=== PATIENT | female | born 1950 | race Caucasian/White ===

== ENCOUNTER 2024-04-19 06:57 | Day surgery (SDC) | payer OTHER, SELFPAY ==
[2024-04-05 13:02] VITALS: BMI 36.3
[2024-04-05 13:43] LABS: % Basophils 0.9 % (0-2); % Eosinophils 1.3 % (0-6); % Immature Granulocytes 0.1 % (0-0.5); % Lymphocytes 25.9 % (20.5-51.1); % Monocytes 7.3 % (1.7-9.3); % Neutrophils 64.5 % (42.2-75.2); Absolute Basophils 0.1 10^3/uL (0-0.2); Absolute Eosinophils 0.1 10^3/uL (0-0.7); Absolute Lymphocytes 1.8 10^3/uL (1.2-3.4); Absolute Monocytes 0.5 10^3/uL (0.1-0.6); Absolute Neutrophils 4.5 10^3/uL (1.4-6.5); Hematocrit 42.7 % (37.0-47.0); Hemoglobin 14.4 g/dL (12.0-16.0); Mean Corp Hgb Conc. 33.7 g/dL (33.0-37.0); Mean Corpuscular Hgb 29.4 pg (27.0-31.0); Mean Corpuscular Volume 87.1 fL (81.0-99.0); Mean Platelet Volume 10.1 fL (7.4-10.4); Nucleated Red Blood Cells % 0 %; Platelet Count 202 10^3/uL (130-400)
[2024-04-05 13:55] LABS: INR 1.22; PT 15.3 Sec (11.4-14.6)
[2024-04-05 14:05] LABS: ALT (SGPT) 21 U/L (0-35); AST (SGOT) 27 U/L (14-36); Albumin 4.4 g/dl (3.5-5.0); Alkaline Phosphatase 96 U/L (38-126); Blood Urea Nitrogen 14 mg/dl (7-17); Calcium 10.3 mg/dl (8.4-10.2); Carbon Dioxide 26 mmol/L (22-30); Estimated Creatinine Clearance 89 ml/min; Glucose 103 mg/dl (70-99); Total Bilirubin 0.7 mg/dl (0.2-1.3); Total Protein 7.3 g/dl (6.3-8.2); eGFR > 60.00
[2024-04-05 14:13] LABS: Chloride 109 mmol/L (98-107); Sodium 144 mmol/L (135-145)
[2024-04-05 14:55] LABS: Potassium 4.1 mmol/L (3.5-5.1)
[2024-04-19] VITALS (14 sets, daily range): BP systolic 122–171; BP diastolic 56–83; BMI 36.3
[2024-04-19 10:36] LABS: ACT-LR - POC 343 Seconds (116-155)
[2024-04-19 10:55] LABS: ACT-LR - POC 318 Seconds (116-155)
[2024-04-19 11:18] LABS: ACT-LR - POC 314 Seconds (116-155)
--- NOTE | 2024-04-19 13:47 | PTCARENOTE ---
received pt from recovery area. AOx3, no complaints of pain or discomfort. Educated on activity restrictions and expected OOB time, Pt verbalized understanding. B/L groins CDI. Call siddiqui within reach.
--- NOTE | 2024-04-19 15:13 | ITS.CL.ABL ---
Medical Office Asst - Ablation
Ablation
Procedure Report:
ELECTROPHYSIOLOGIC STUDY AND POSSIBLE ABLATION
DATE: April 19, 2024
Primary Care: Dr. Sergio Gonzales
REFERRING: Dr Quique Joseph
INDICATION:
Symptomatic Atrial Fibrillation.
Paroxysmal
HISTORY: See H and P.
Symptomatic AF, poorly controlled with attempted medical therapy
Jaimie has symptomatic recurrent atrial fibrillation. She has been treated with antiarrhythmic drug therapy which has included sotalol, However up-titation of dosing has been limited by bradycardia. She had pulmonary venous isolation September 2015,
repeat PVI 01/2022 and prior to that Cryo PVI in 2014
She has experienced multiple recurrences of symptomatic atrial fibrillation and required cardioversion as recently as November 18, 2023. Immediately after cardioversion she felt well and continued to feel well.
Most recent echocardiogram is from December 09, 2023 finding normal left ventricular size and function with ejection fraction of 54%. She was found to be in atrial fibrillation again during this echocardiogram. Echocardiogram notes that there is
normal left atrial and right atrial sizes and no significant valvular disease.
HAS-BLED: 1
Age
CHADSVASc: 3
HTN
age
F Gender
PRESENTING RHYTHM: SR
HISTORY: See H and P.
Symptomatic AF, poorly controlled with attempted medical therapy.
ANTIARRHYTHMIC DRUG: Sotalol, 80 mg BID
ANTICOAGULATION: Apixaban
'TIME-OUT': called and confirmed.
SEDATION/ANESTHESIA: provided via the anesthesia department using general anesthesia.
PROCEDURE:
Ultrasound Guidance performed by or was utilized for femoral venous Vascular Access b/l.
A decapolar CS catheter was placed within the CS for mapping and pacing.
The intracardiac ultrasound catheter was positioned in the RA for continuous intracardiac ultrasound imaging.
Heparin bolus and infusion to target ACT at 300 -350 seconds was administered. Transseptal puncture was performed. This entailed advancing a sheath with dilator into the superior vena cava and withdrawing both (monitoring intracardiac ultrasound,
fluoroscopy and tip pressure) with the tip oriented toward the atrial septum. The fossa ovalis was engaged (indicated by sudden displacement of the sheath tip as well as tenting of the fossa seen on intracardiac ultrasound).
Ac[employer]Cross transseptal system was used. Left atrial catheter position was confirmed by echocardiographic imaging, pressure monitoring (LA mean pressure 8 mm Hg) and fluoroscopy. The sheath was advanced over the dilator and positioned in the left
atrium.
The multipolar mapping catheter was initially positioned through the transseptal sheath for high density mapping.
Geometry and voltage mapping was performed using the [employer] multipolar grid catheter. Navex was utilized for three-dimensional electroanatomical mapping.
A 3-D map was created using Navex . A 3-D reconstructed CT image was compared to the 3-D Navex map to assist in anatomic evaluation, mapping and ablation.
The [employer] Pulse Select PFA catheter and system was used for cardiac ablation. Catheter positioning was guided and confirmed using both I.C.E. and fluoroscopy.
Extensive high-definition mapping using the [employer] grid multipolar catheter finds a small isolated area of antral reconnection posteriorly at the dome towards the left superior pulmonary vein. There is fractionation of the posterior wall of the
left atrium and given her multiple recurrences, a strategy of reisolation at the left superior pulmonary vein as well as posterior wall isolation.
Pulse electric field energy was utilized to be isolate the vein and also to isolate the posterior wall of the left atrium. At the completion of ablation remapping with the [employer] multipolar grid catheter found that all PVPs were eliminated at each
vein demonstrating entrance block. Also pacing from the multipolar mapping catheter around the the circumference of the ostia was performed at 10 ma and 2.0 msec output to assess for exit block. This demonstrated electrical isolation at each of
the pulmonary vein ostia (common left sided pulmonary vein and independent right superior as well as inferior pulmonary veins).
I.C.E. :
Pre-Ablation Post-Ablation
LVEF: 55 % 55 %
WMA: none none
Pericardial effusion: trace posterior trace posterior
COMPLICATIONS:
None
SUMMARY:
- Mapping and ablation to isolate the left superior pulmonary vein and its antrum
- Additional ablation lesion set to isolate the posterior wall of the left atrium
- 3-D Electroanatomical Mapping
- Intracardiac Ultrasound / Echocardiogram
Post ablation, I discussed today's findings and results with the patient's friend, Jil.
RECOMMENDATIONS:
- Observe in monitored bed overnight.
- Maintain oral anticoagulation.
- Continue Sotalol
- Office visit with Dr Joseph in 3 months.
- Continue cardiovascular care with Dr Joseph
Copy to:
Dr. Sergio Gonzales
Dr. Quique Joseph
--- NOTE | 2024-04-19 15:24 | CM ---
Reviewed chart. Met with Mrs. Garcia to review discharge plans. She states prior to admission she resides alone in a one story home with three steps to enter. She states prior to admission she was independent with ambulation and adls. She
states she does not have any DME in the home. She states she has a prescription plan and uses [facility]. The discharge plan is to return home when medically stable.
[2024-04-19] MEDS: MAG-TAB SR 84 MG PO (17:10)
[2024-04-19] MEDS: PROTONIX 40 MG PO (17:10)
[2024-04-19] MEDS: BETAPACE 80 MG PO (20:11)
[2024-04-19] MEDS: ELIQUIS 5 MG PO (20:11)
--- NOTE | 2024-04-19 20:55 | PTCARENOTE ---
Pt rec'd at beginning of shift awake,alert states earlier migraine relieved. Pt now states that she is starting with another migraine in opposite eye. Pt states she just needs it dark in the room. does not want ice or medication. Sinus with pvc's on
telemetry. B/L groin sites intact with no active bleeding or hematoma present. call siddiqui within reach.
[2024-04-20 04:32] VITALS: BP 148/56
[2024-04-20 05:34] LABS: Hemoglobin 13.4 g/dL (12.0-16.0); Mean Corp Hgb Conc. 33.5 g/dL (33.0-37.0); Mean Corpuscular Hgb 29.7 pg (27.0-31.0); Mean Corpuscular Volume 88.7 fL (81.0-99.0); Mean Platelet Volume 10.6 fL (7.4-10.4); Platelet Count 174 10^3/uL (130-400); Red Blood Cell Count 4.51 10^6/uL (4.20-5.40); Red Cell Dist. Width 13.2 % (11.5-14.5); White Blood Cell Count 11.1 10^3/uL (4.8-10.8)
--- NOTE | 2024-04-20 05:49 | PTCARENOTE ---
Pt reports no migraines this morning. Sinus alfonzo 40's on telemetry
[2024-04-20 05:56] LABS: Blood Urea Nitrogen 19 mg/dl (7-17); Calcium 10.2 mg/dl (8.4-10.2); Carbon Dioxide 22 mmol/L (22-30); Chloride 107 mmol/L (98-107); Estimated Creatinine Clearance 76 ml/min; Glucose 112 mg/dl (70-99); Magnesium 2.1 mg/dl (1.6-2.3); Potassium 3.8 mmol/L (3.5-5.1); Sodium 140 mmol/L (135-145); eGFR > 60.00
[2024-04-20 06:46] VITALS: BP 135/54
--- NOTE | 2024-04-20 08:28 | W.PN.CARDCBS ---
Addendum entered and electronically signed by Dandre Aguilar MD 04/20/24 12:20:
Patient seen and examined
Agree with BIOFUELS PRODUCTION MANAGER note
Agree with BIOFUELS PRODUCTION MANAGER assessment
Examination:
Bilateral groins clean dry intact
Cor regular
JVP 6
No extreme edema
Nonfocal neurologically
Reviewed examination per LEVEL GLASS VIAL FILLER note
Impression:
1. Paroxysmal symptomatic atrial fibrillation.
2. Obesity, BMI 36.26.
3. Hypertension.
4. Impaired fasting glucose.
5. Vitamin D deficiency.
6. Gastroesophageal reflux disease.
7. Obstructive sleep apnea, CPAP compliant.
8. Thyroid nodule.
9. Osteopenia.
10. Melanoma in situ.
11. Remote tobacco abuse
Plan:
post redo ablation LSPV and PW 04/19/24
groins stable
tele SB 40-50's with occ PVC's, asymptomatic
OAC Eliquis
continue sotalol
HTN - continue amlodipine and lisinopril
Activity restrictions reviewed
f/u Dr. Joseph in 2 mo
Home today
Original Note:
Today's Communication / Plan
-
post ablation, stable for d/c home
Impression / Plan
-
PCP: Dr. Gonzales
CDY: Dr. Joseph
Impression:
1. Paroxysmal symptomatic atrial fibrillation.
2. Obesity, BMI 36.26.
3. Hypertension.
4. Impaired fasting glucose.
5. Vitamin D deficiency.
6. Gastroesophageal reflux disease.
7. Obstructive sleep apnea, CPAP compliant.
8. Thyroid nodule.
9. Osteopenia.
10. Melanoma in situ.
11. Remote tobacco abuse
Plan:
post redo ablation LSPV and PW 04/19/24
groins stable
tele SB 40-50's with occ PVC's, asymptomatic
OAC Eliquis
continue sotalol
HTN - continue amlodipine and lisinopril
Activity restrictions reviewed
f/u Dr. Joseph in 2 mo
Home today
Progress Note - Stopperer Assembler
Subjective
Date of Service: April 20, 2024
no cp, sob, denies LH, dizziness with bradycardia
Objective
Labs:
04/20/24 04:46
04/20/24 04:46
Labs
Hgb 13.4 g/dL (12.0-16.0) 04/20/24 04:46
Hct 40.0 % (37.0-47.0) 04/20/24 04:46
Plt Count 174 10^3/uL (130-400) 04/20/24 04:46
PT 15.3 Sec (11.4-14.6) H 04/05/24 13:33
INR 1.22 04/05/24 13:33
Sodium 140 mmol/L (135-145) 04/20/24 04:46
Potassium 3.8 mmol/L (3.5-5.1) 04/20/24 04:46
BUN 19 mg/dl (7-17) H 04/20/24 04:46
Creatinine 0.7 mg/dL (0.6-1.0) 04/20/24 04:46
Glucose 112 mg/dl (70-99) H 04/20/24 04:46
Vital Signs and I&O:
Vital Signs
Temp Pulse Resp BP Pulse Ox
97.8 F 41 16 148/56 99
04/20/24 06:44 04/20/24 06:44 04/20/24 06:44 04/20/24 04:32 04/20/24 06:44
Vital Signs
Temp Pulse Resp BP Pulse Ox
97.8 F 41 16 148/56 99
04/20/24 06:44 04/20/24 06:44 04/20/24 06:44 04/20/24 04:32 04/20/24 06:44
Intake & Output
04/18/24 04/19/24 04/20/24 04/21/24
06:59 06:59 06:59 06:59
Output Total 700 / 700
Balance -700 / -700
Physical Exam
Physical Exam
NAD, AOX3\\
S1, S2, RRR
CTAB, non labored
SNTND bsx4
b/l groins c/d/i no HT, soft
[2024-04-20] MEDS: NORVASC 2.5 MG PO (08:58)
[2024-04-20] MEDS: ELIQUIS 5 MG PO (08:58)
[2024-04-20] MEDS: ZESTRIL 80 MG PO (08:59)
[2024-04-20] MEDS: BETAPACE 80 MG PO (09:12)
[2024-04-20] MEDS: VITAMIN D3 (cholecalciferol) 50 MCG PO (09:20)
[2024-04-20 11:05] VITALS: BP 135/59
--- NOTE | 2024-04-20 11:24 | W.DS.TRANS ---
DC Summary - Hide Stretcher Hand
-
Discharge Instructions:
Discharge Diagnosis/Procedures Afib post ablation
Diet Low Cholesterol
Driving Restrictions No driving for 24 hours
Instructions:
Stand-Alone Forms: DC Instructions- Cath/EP Lab
Changes to Home Medications: No
Discharge Medications:
DC Medications w/original date entered in [email or web address]
amlodipine 10 mg tablet 2.5 mg PO DAILY Blood pressure 10/03/15
lisinopril 40 mg tablet 80 mg PO DAILY Blood pressure 10/03/15
sotalol 80 mg tablet 80 mg PO BID atrial fib 03/12/19
apixaban 5 mg tablet (Eliquis) 5 mg PO BID Blood clot prevention/tx 07/08/20
Lactobacillus Combination No.4 [Probiotic] 1 ea PO DAILY Supplement 01/10/22
azelastine 137 mcg (0.1 %) nasal spray aerosol 1 spray intranasal PRN PRN nasal congestion 01/24/22
magnesium 200 mg tablet 125 mg PO QPM Supplement 01/24/22
polyethylene glycol 400 0.25 % eye drops (Blink Tears) 1 drp OP PRN PRN dry eye 01/24/22
omeprazole 20 mg capsule,delayed release 20 mg PO QPM Gastrointestinal Issue 11/18/23
cholecalciferol (vitamin D3) 50 mcg (2,000 unit) tablet (Vitamin D3) 50 mcg PO DAILY Supplement 04/01/24
Home Medication Changes
Pending Results: No
== END 2024-04-20 12:10 | disposition home or self-care (01) ==
LOC: CATH 06:57
PROVIDERS: ATTENDING PHYSICIAN Internal Medicine Cardiovascular Disease; FAMILY PHYSICIAN Physician Assistant Medical; OTHER PHYSICIAN Internal Medicine Cardiovascular Disease
DX: I48.0 Paroxysmal atrial fibrillation (principal); I11.9 Hypertensive heart disease without heart failure; Z79.899 Other long term (current) drug therapy; Z79.01 Long term (current) use of anticoagulants; K21.9 Gastro-esophageal reflux disease without esophagitis; R73.01 Impaired fasting glucose; E55.9 Vitamin D deficiency, unspecified; G47.33 Obstructive sleep apnea (adult) (pediatric); E04.1 Nontoxic single thyroid nodule; M85.80 Other specified disorders of bone density and structure, unspecified site; Z87.891 Personal history of nicotine dependence; Z85.820 Personal history of malignant melanoma of skin; Z90.49 Acquired absence of other specified parts of digestive tract; Z88.6 Allergy status to analgesic agent
CPT/HCPCS: C1732; C1733; C1894; C1769; C1730; C1892; 36415; 76937; 80048; 80053; 83735; 85025; 85027; 85610; 93005; 93655; 93656; G0378

== ENCOUNTER 2024-11-20 17:12 | Emergency (ER) | payer OTHER, SELFPAY ==
[2024-11-20 17:16] VITALS: BP 169/108
[2024-11-20 17:42] LABS: % Basophils 0.9 % (0-2); % Eosinophils 0.9 % (0-6); % Immature Granulocytes 0.4 % (0-0.5); % Lymphocytes 21.5 % (20.5-51.1); % Monocytes 6.9 % (1.7-9.3); % Neutrophils 69.4 % (42.2-75.2); Absolute Basophils 0.1 10^3/uL (0-0.2); Absolute Eosinophils 0.1 10^3/uL (0-0.7); Absolute Lymphocytes 2.1 10^3/uL (1.2-3.4); Absolute Monocytes 0.7 10^3/uL (0.1-0.6); Absolute Neutrophils 6.9 10^3/uL (1.4-6.5); Hematocrit 47.3 % (37.0-47.0); Hemoglobin 15.9 g/dL (12.0-16.0); Mean Corp Hgb Conc. 33.6 g/dL (33.0-37.0); Mean Corpuscular Hgb 30.2 pg (27.0-31.0); Mean Corpuscular Volume 89.8 fL (81.0-99.0); Nucleated Red Blood Cells % 0 %; Platelet Count 239 10^3/uL (130-400); Red Blood Cell Count 5.27 10^6/uL (4.20-5.40); Red Cell Dist. Width 12.8 % (11.5-14.5); White Blood Cell Count 9.9 10^3/uL (4.8-10.8)
[2024-11-20 18:08] LABS: ALT (SGPT) 25 U/L (0-35); AST (SGOT) 27 U/L (14-36); Alkaline Phosphatase 89 U/L (38-126); Blood Urea Nitrogen 14 mg/dl (7-17); Calcium 10.4 mg/dl (8.4-10.2); Carbon Dioxide 28 mmol/L (22-30); Chloride 104 mmol/L (98-107); Glucose 107 mg/dl (70-99); Potassium 4.1 mmol/L (3.5-5.1); Sodium 142 mmol/L (135-145); Total Bilirubin 0.7 mg/dl (0.2-1.3); Total Protein 8.2 g/dl (6.3-8.2); eGFR > 60.00
--- NOTE | 2024-11-20 20:53 | ED.GENMED ---
History of Present Illness
General
Chief Complaint: Heart Rate Problem
Source: patient
Exam Limitations: none
Time Seen by Provider: 11/20/24 20:26
Nursing documentation reviewed up to this point in time: agreed with
History of Present Illness
History of Present Illness:
The patient is a 74-year-old lady with a past medical history of A-fib on Eliquis. Patient reports she felt herself go into A-fib in 8 AM this morning. Patient reports that it feels like her heart is flipping around and she gets short of breath.
Patient is requesting cardioversion. She reports she has had multiple cardioversions in the ED before. She reports that every time she has put on Cardizem it lowers her heart rate but does not convert her.
Past History
Past History
ED Past Medical History: Arrthythmia (Atrial fibrillation), HTN and Other (Migraines, ovarian cyst, GERD, diverticulosis, cataracts, skin cancer)
ED Past Surgical History: Cholecystectomy and Gynecological (Ovarian cystectomy)
Social History
Tobacco: Non-smoker
Alcohol: Occasional
Personal:
Living: with family
Family History
Family History: Other (Mother with A. fib brother with hypertension)
Review of Systems
Review of Systems
Allergies reviewed?: Yes
All Other Systems: ROS reviewed and negative except as documented in HPI and ROS
Constitutional: Reports no symptoms
EENT: Reports no symptoms
Respiratory: Reports trouble breathing
Cardiac: Reports palpitations
ABD/GI: Reports no symptoms
: Reports no symptoms
Musculoskeletal: Reports no symptoms
Skin: Reports no symptoms
Neurological: Reports no symptoms
Endocrine: Reports no symptoms
Hematologic/Lymphatic: Reports no symptoms
Psychiatric: Reports no symptoms
Phy Exam
Physical Exam
Physical Exam:
Physical Exam
General: no apparent distress, not acutely ill
Neck: supple. no meningeal signs. normal psoterior pharynx
Heart: Tachycardic, irregular
Lungs: no acute respiratory distress. clear bilaterally
Abdomen: normal bowel sounds. not tender. no CVAT
Neuro: alert and oriented. no focal neurological deficits
Skin: no rash
Psychiatric: well kept. interactive and cooperative
Extremities: no edema. no calf tenderness. negative homans. good distal pulses
Course
Orders/Labs/Results
Orders:
Orders
11/20/24 17:19
Electrocardiogram (*1) Urgent
Reason for Study: Palpitations
EKG- Treatment ONCE
11/20/24 17:31
CMP [Comprehensive Metabolic Panel] Urgent
Complete Blood Count/With Diff Urgent
11/20/24 21:37
Propofol [Diprivan] 60 mg IV NOW STA
11/20/24 21:38
ASA Classification Routine
Propofol [Diprivan] 20 ml .ROUTE .STK-MED
11/20/24 21:45
EKG [Electrocardiogram (*1)] Urgent
Reason for Study: Palpitations
Other Reason for Exam: pt may have converted to NSR
11/20/24 21:46
EKG- Treatment ONCE
Abnormal Lab Results
11/20/24
17:31
Hct 47.3 H %
(37.0-47.0)
Absolute Neuts (auto) 6.9 H 10^3/uL
(1.4-6.5)
Absolute Monos (auto) 0.7 H 10^3/uL
(0.1-0.6)
Glucose 107 H mg/dl
(70-99)
Calcium 10.4 H mg/dl
(8.4-10.2)
11/20/24 17:31
11/20/24 17:31
Vital Signs
Initial and Last Documented VS:
Initial Vital Signs
Temp Pulse Resp BP Pulse Ox
97.7 F 110 18 169/108 99
11/20/24 17:16 11/20/24 17:16 11/20/24 17:16 11/20/24 17:16 11/20/24 17:16
Last Documented Vital Signs
Temp Pulse Resp BP Pulse Ox
98.4 F 73 16 160/78 96
11/20/24 21:24 11/20/24 21:45 11/20/24 21:45 11/20/24 21:45 11/20/24 21:45
MDM/Problems Addressed
Differential Diagnosis Includes:
Atrial fibrillation with RVR, a flutter, sinus tachycardia
MDM/Problems Addressed:
Patient presents with acute palpitations and shortness of breath
Chronic conditions affecting care: Arrhythmia
Acute Exacerbation and/or Progression of Chronic Illness:
Patient has acute exacerbation of rapid A-fib
Acute Exacerbation and/or Progression of Chronic Illness: Arrhythmia
*Pulse Oximetry
Patient hypoxic: no
*EKG
Interpreted by ED Provider?: Yes
Interpretation: abnormal
Comparison EKG: changes noted
Rate: tachycardiac
Rhythm: a-fib
[place]: left axis deviation
Interval: normal interval
QRS Pattern: wide non-specific
Ischemia: non-specific ST changes
*Meat Sales And Storage Manager Interpretation
Rate: tachycardiac
Interpretation: abnormal
Rhythm: a-fib
*Critical Care Note
Total Time (30-74mins, 75-104mins- exclusive of procedures): Not Applicable
Data Reviewed
Review of Other/Old Records Reveals: Discharge Summary (Discharge summary reviewed from cardiology from April 2024 when patient underwent cardiac ablation for A-fib)
Source: patient
Update Note
Update Note:
9:50 PM patient gave verbal and written consent for conscious sedation and cardioversion. Timeout completed for procedure. Before I gave patient the propofol, on the livestock farmers her heart rate went into the 60s to 70s. We confirmed that
patient self converted to a sinus rhythm by doing an EKG. EKG #2 shows a sinus rhythm with a heart rate of 68. Left axis deviation. Nonspecific ST changes with occasional PVC. Patient reports she feels much better wants to go home. Thus, there
is no need for conscious sedation cardioversion after all.
ED Attending Note
-
Portions of this chart may have been created with voice recognition software.� Occasional wrong word or��sound alike� substitutions may have occurred due to the inherent limitations of voice recognition software.
Discharge Plan
Departure
Patient Disposition: Home (Routine Discharge)
Date of Disposition: 11/20/24
Time of Disposition: 21:57
Patient with high blood pressure during this ER visit?: Yes
Condition: Good
Covid-19: Not Applicable
Discharge Problem:
Atrial fibrillation with rapid ventricular response
Instructions: Atrial Fibrillation (DC), Chest Pain DCA Follow Up, BLOOD PRESSURE
Prescriptions:
No Action
amlodipine 10 MG tablet
10 mg PO DAILY
lisinopril 40 MG tablet
40 mg PO DAILY
sotalol 80 MG tablet
80 mg PO BID
Eliquis 5 MG tablet
5 mg PO BID
Lactobacillus Combination No.4 [Probiotic] 1 EACH Capsule
1 ea PO DAILY
azelastine 1 SPRAY aerosol,spray
1 spray intranasal PRN PRN (Reason: nasal congestion)
Blink Tears 15 ML drops
1 drp OP PRN PRN (Reason: dry eye)
omeprazole 20 MG capsule,delayed release(DR/EC)
20 mg PO PRN PRN (Reason: gerd)
cholecalciferol (vitamin D3) [Vitamin D3] 50 mcg (2,000 unit) Tablet
50 mcg PO DAILY
hydrochlorothiazide 12.5 mg Tablet
12.5 mg PO DAILY
magnesium
125 mg PO DAILY
Referrals:
Sergio Gonzales PA-C [Family Provider] -
Interventions
Interventions:
*Risk Screen - Suicide Last Done: 11/20/24 17:16
*General Assessment Last Done: 11/20/24 17:16
*Neglect/Abuse Screening Last Done: 11/20/24 17:16
ED- Fall Risk Assessment Last Done: 11/20/24 20:52
*ED COVID-19 Vaccine History Last Done: 11/20/24 17:16
ED- Cardiac Assessment Last Done: 11/20/24 21:25
ED- Pulmonary Assessment Last Done: 11/20/24 21:25
Discharge Date and Time
Print Language: CAMEROONIAN
[2024-11-20 21:06] VITALS: BMI 33.3
[2024-11-20 21:14] VITALS: BP 156/103
[2024-11-20 21:41] VITALS: BP 151/80
[2024-11-20 21:45] VITALS: BP 160/78
--- NOTE | 2024-11-20 21:46 | EDRN ---
Time out done 2142 - while this RN recording VS HR noted to be in 70's then dropped into 60's. Dr Lopez believes pt converted to NSR on her own. NO medications given yet. Repeat EKG ordered.
[2024-11-20 21:50] VITALS: BP 151/70
[2024-11-20 21:55] VITALS: BP 151/88
--- NOTE | 2024-11-20 22:09 | EDRN ---
Wasted 200mg IV propofol with Sarai Hall RN as witness.
== END 2024-11-20 22:09 | disposition home or self-care (01) ==
LOC: EMR 17:12
PROVIDERS: Emergency Medicine; EMERGENCY PHYSICIAN Emergency Medicine; FAMILY PHYSICIAN Physician Assistant Medical
DX: I48.91 Unspecified atrial fibrillation (principal); I10 Essential (primary) hypertension; K21.9 Gastro-esophageal reflux disease without esophagitis; Z79.01 Long term (current) use of anticoagulants; Z82.49 Family history of ischemic heart disease and other diseases of the circulatory system; Z85.828 Personal history of other malignant neoplasm of skin; Z90.49 Acquired absence of other specified parts of digestive tract
CPT/HCPCS: 99283; 80053; 85025; 93005

== ENCOUNTER → 2025-02-05 10:01 | Outpatient (REF) | payer OTHER, SELFPAY | LOC: WDC 10:01 | PROVIDERS: ATTENDING PHYSICIAN Physician Assistant Medical | DX: Z12.31 Encounter for screening mammogram for malignant neoplasm of breast (principal) | CPT/HCPCS: 77063; 77067 ==

== ENCOUNTER 2025-02-15 16:25 | Emergency (ER) | payer OTHER, SELFPAY ==
[2025-02-15] VITALS (9 sets, daily range): BP systolic 120–160; BP diastolic 69–130; BMI 34.8
[2025-02-15 17:03] LABS: Hematocrit 47.1 % (37.0-47.0); Hemoglobin 16.4 g/dL (12.0-16.0); Mean Corp Hgb Conc. 34.8 g/dL (33.0-37.0); Mean Corpuscular Hgb 30.3 pg (27.0-31.0); Mean Corpuscular Volume 86.9 fL (81.0-99.0); Platelet Count 251 10^3/uL (130-400); Red Blood Cell Count 5.42 10^6/uL (4.20-5.40); Red Cell Dist. Width 12.7 % (11.5-14.5); White Blood Cell Count 9.6 10^3/uL (4.8-10.8)
[2025-02-15 17:15] LABS: ALT (SGPT) 27 U/L (0-35); AST (SGOT) 31 U/L (14-36); Albumin 5.3 g/dl (3.5-5.0); Alkaline Phosphatase 97 U/L (38-126); Blood Urea Nitrogen 14 mg/dl (7-17); Carbon Dioxide 25 mmol/L (22-30); Chloride 108 mmol/L (98-107); Glucose 100 mg/dl (70-99); Potassium 4.2 mmol/L (3.5-5.1); Sodium 145 mmol/L (135-145); Total Bilirubin 1.1 mg/dl (0.2-1.3); Total Protein 8.6 g/dl (6.3-8.2); eGFR > 60.00
--- NOTE | 2025-02-15 18:06 | ED.GENMED ---
History of Present Illness
<Krys Garduno FISHING VESSEL CAPTAIN - Last Filed: 02/16/25 00:43>
General
Chief Complaint: Cardiac Symptoms
Source: patient
Exam Limitations: none
Time Seen by Provider: 02/15/25 18:05
Nursing documentation reviewed up to this point in time: agreed with
History of Present Illness
History of Present Illness:
74-year-old female with history of A-fib on Eliquis, ablation 2021 and 05/10, HTN, HLD, GERD presents for 'I'm in A-fib' and requesting cardioversion. Noted irregular HR upon awakening this a.m. Denies CP, feels 'a little' SOB which is typical with
her afib. Denies lightheadedness. Last po intake, ate a piece of banana bread and some almonds 5 hours ago.
Past History
<Krys Garduno, FISHING VESSEL CAPTAIN - Last Filed: 02/16/25 00:43>
Past History
ED Past Medical History: Arrthythmia (Atrial fibrillation), HTN and Other (Migraines, ovarian cyst, GERD, diverticulosis, cataracts, skin cancer)
ED Past Surgical History: Cholecystectomy and Gynecological (Ovarian cystectomy)
Social History
Tobacco: Non-smoker
Alcohol: Occasional
Personal:
Living: with family
Family History
Family History: Other (Mother with A. fib brother with hypertension)
Review of Systems
<Krys Garduno, FISHING VESSEL CAPTAIN - Last Filed: 02/16/25 00:43>
Review of Systems
Allergies reviewed?: Yes
All Other Systems: ROS reviewed and negative except as documented in HPI and ROS
Constitutional: Denies fever, fatigue or chills
EENT: Denies sore throat
Respiratory: Denies trouble breathing
Cardiac: Reports palpitations; Denies chest pain
ABD/GI: Denies abdominal pain, nausea, vomiting or diarrhea
: Denies dysuria, frequency or difficulty voiding
Musculoskeletal: Reports no symptoms
Skin: Reports no symptoms
Neurological: Reports no symptoms
Phy Exam
<Krys Garduno, FISHING VESSEL CAPTAIN - Last Filed: 02/16/25 00:43>
Physical Exam
Physical Exam:
GENERAL: No acute distress. A&Ox3.
CONSTITUTIONAL: Afebrile.
EYES: clear, conjunctivae normal
ENMT: moist mucus membranes, Pharynx nl
RESPIRATORY: Regular respirations, nonlabored, lungs clear.
CARDIOVASCULAR: Irregularly irregular rate and rhythm, no murmurs, no rubs.
GI: Soft, nontender, normal BS
MUSCULOSKELETAL: Moves with ease. Well perfused. No edema
SKIN: Warm, dry, pink
PSYCH: Normal mood and affect. Well kept, interactive and appropriate
NEUROLOGIC: Awake, alert and oriented. No focal neurological deficits
Course
<Krys Garduno, FISHING VESSEL CAPTAIN - Last Filed: 02/16/25 00:43>
Orders/Labs/Results
Orders:
Orders
02/15/25 16:26
EKG [Electrocardiogram (*1)] Urgent
Reason for Study: Atrial Fibrillation
EKG- Treatment ONCE
02/15/25 16:46
CMP [Comprehensive Metabolic Panel] Urgent
Complete Blood Count/No Diff Urgent
TSH Reflex To Free T4 Urgent
02/15/25 18:33
Propofol [Diprivan] 20 ml .ROUTE .STK-MED
02/15/25 18:52
ECG [Electrocardiogram (*1)] Urgent
Reason for Study: Atrial Fibrillation
EKG- Treatment ONCE
Abnormal Lab Results
02/15/25
16:46
RBC 5.42 H 10^6/uL
(4.20-5.40)
Hgb 16.4 H g/dL
(12.0-16.0)
Hct 47.1 H %
(37.0-47.0)
Chloride 108 H mmol/L
(98-107)
Glucose 100 H mg/dl
(70-99)
Calcium 11.0 H mg/dl
(8.4-10.2)
Total Protein 8.6 H g/dl
(6.3-8.2)
Albumin 5.3 H g/dl
(3.5-5.0)
02/15/25 16:46
02/15/25 16:46
Vital Signs
Initial and Last Documented VS:
Initial Vital Signs
Temp Pulse Resp BP Pulse Ox
98 F 102 20 160/101 99
02/15/25 16:35 02/15/25 16:35 02/15/25 16:35 02/15/25 16:35 02/15/25 16:35
Last Documented Vital Signs
Temp Pulse Resp BP Pulse Ox
98.9 F 47 18 143/69 99
02/15/25 19:00 02/15/25 19:45 02/15/25 19:00 02/15/25 19:45 02/15/25 19:45
<Liam Nguyen, DO - Last Filed: 02/15/25 19:03>
Orders/Labs/Results
Orders:
Orders
02/15/25 16:26
EKG [Electrocardiogram (*1)] Urgent
Reason for Study: Atrial Fibrillation
EKG- Treatment ONCE
02/15/25 16:46
CMP [Comprehensive Metabolic Panel] Urgent
Complete Blood Count/No Diff Urgent
TSH Reflex To Free T4 Urgent
02/15/25 18:33
Propofol [Diprivan] 20 ml .ROUTE .STK-MED
02/15/25 18:52
ECG [Electrocardiogram (*1)] Urgent
Reason for Study: Atrial Fibrillation
EKG- Treatment ONCE
Abnormal Lab Results
02/15/25
16:46
RBC 5.42 H 10^6/uL
(4.20-5.40)
Hgb 16.4 H g/dL
(12.0-16.0)
Hct 47.1 H %
(37.0-47.0)
Chloride 108 H mmol/L
(98-107)
Glucose 100 H mg/dl
(70-99)
Calcium 11.0 H mg/dl
(8.4-10.2)
Total Protein 8.6 H g/dl
(6.3-8.2)
Albumin 5.3 H g/dl
(3.5-5.0)
02/15/25 16:46
02/15/25 16:46
Vital Signs
Initial and Last Documented VS:
Initial Vital Signs
Temp Pulse Resp BP Pulse Ox
98 F 102 20 160/101 99
02/15/25 16:35 02/15/25 16:35 02/15/25 16:35 02/15/25 16:35 02/15/25 16:35
Last Documented Vital Signs
Temp Pulse Resp BP Pulse Ox
98.9 F 47 18 143/69 99
02/15/25 19:00 02/15/25 19:45 02/15/25 19:00 02/15/25 19:45 02/15/25 19:45
Procedures
<Liam Nguyen, DO - Last Filed: 02/15/25 19:03>
Cardioversion
Indication:: Afib
Performed by:: Dr. Wendy Carney
Synchronized?: Yes
Number of attempts: 1
Successful?: Yes
ASA Risk Score: Class III
Any reaction or bad outcome to prior sedation/anesthesia?: No history of a reaction
Sedation level to be attained: moderate
Chart and allergies reviewed: Yes
Patient reassessed prior to sedation: Yes
Time out completed at (validating right patient & procedure): 18:47
History of difficult intubation: No
Airway free of obstruction: Yes
Patient has a gag reflex: Yes
Patient is able to open mouth: Yes
Patient has no dentures: Yes
Patient has no loose teeth: Yes
Medication administered by Provider during Moderate Sedation: IV Propofol (mg)
Total dose administered: 70
Time drug administered: 18:48
Start Time: 18:47
Stop Time: 18:58
<Krys Garduno, FISHING VESSEL CAPTAIN - Last Filed: 02/16/25 00:43>
MDM/Problems Addressed
Differential Diagnosis Includes:
A-fib with RVR, thyroid abnormality
MDM/Problems Addressed:
74-year-old female with history of A-fib on Eliquis, ablation 2021 and 05/10, HTN, HLD, GERD presents for 'I'm in A-fib' and requesting cardioversion. Noted irregular HR upon awakening this a.m. Denies CP, feels 'a little' SOB which is typical with
her afib. Denies lightheadedness. Last po intake, ate a piece of banana bread and some almonds 5 hours ago. Takes her Eliquis as ordered. Hasn't missed a dose.
6:15 PM:
EKG atrial fibrillation with RVR heart rate 110
CBC with no clinically significant abnormality
CMP with no clinically significant abnormality
TSH within normal limits
Consent for moderate sedation and cardioversion signed and scanned into chart
<Krys Garduno, FISHING VESSEL CAPTAIN - Last Filed: 02/16/25 00:43>
*EKG
EKG Intrepretation Date: 02/15/25
Interpretation: abnormal
Comparison EKG: changes noted
Heart Rate: 110
Rate: tachycardiac
Rhythm: a-fib
[place]: left axis deviation
QRS Pattern: wide non-specific
Ischemia: no ischemia
*Critical Care Note
Total Time (30-74mins, 75-104mins- exclusive of procedures): Not Applicable
ED Attending Note
<Krys Garduno FISHING VESSEL CAPTAIN - Last Filed: 02/16/25 00:43>
-
Portions of this chart may have been created with voice recognition software.� Occasional wrong word or��sound alike� substitutions may have occurred due to the inherent limitations of voice recognition software.
<Liam Nguyen, DO - Last Filed: 02/15/25 19:03>
ED Attending Note
Patient seen and examined by attending physician: Yes
I performed the substantive portion of visit, reviewed & personally made and approve the management plan that is documented in note by myself or FREDIS.: Yes
ED Attending Note:
I evaluated patient at bedside. The patient had symptoms of A-fib since early this morning. She is compliant with her medications including Eliquis. She remained in A-fib here with rates of around to 110. She strongly prefers to be electrically
cardioverted while in the emergency department. This was performed without any difficulty.
Discharge Plan
Departure
Patient Disposition: Home (Routine Discharge)
Date of Disposition: 02/15/25
Time of Disposition: 18:59
Patient with high blood pressure during this ER visit?: Yes
Discharge Problem:
Afib
Instructions: Cardioversion, MODERATE SEDATION ADULT, BLOOD PRESSURE
Prescriptions:
No Action
amlodipine 10 MG tablet
10 mg PO DAILY
lisinopril 40 MG tablet
40 mg PO DAILY
sotalol 80 MG tablet
80 mg PO BID
Eliquis 5 MG tablet
5 mg PO BID
Lactobacillus Combination No.4 [Probiotic] 1 EACH Capsule
1 ea PO DAILY
azelastine 1 SPRAY aerosol,spray
1 spray intranasal PRN PRN (Reason: nasal congestion)
Blink Tears 15 ML drops
1 drp OP PRN PRN (Reason: dry eye)
omeprazole 20 MG capsule,delayed release(DR/EC)
20 mg PO PRN PRN (Reason: gerd)
cholecalciferol (vitamin D3) [Vitamin D3] 50 mcg (2,000 unit) Tablet
50 mcg PO DAILY
hydrochlorothiazide 12.5 mg Tablet
12.5 mg PO DAILY
magnesium
125 mg PO DAILY
Referrals:
Brandon Carbajal MD [Active] - Follow up in 2-3 days
Activity Restrictions/Additional Instructions:
Continue your current medications as well as Eliquis as previously prescribed you were successfully cardioverted in 1 attempt. Follow-up with Dr. Carbajal. No driving tonight I do not make any important decisions tonight. Return here if worse
or other concerns.
Interventions
Interventions:
*Risk Screen - Suicide Last Done: 02/15/25 16:35
*Nursing Disposition Last Done: 02/15/25 20:01
ED- Pulmonary Assessment Last Done: 02/15/25 18:27
ED- Cardiac Assessment Last Done: 02/15/25 18:27
Discharge Date and Time
Discharge Date/Time: 02/15/25 20:02
Print Language: CROATIAN
== END 2025-02-15 20:02 | disposition home or self-care (01) ==
LOC: EMR 16:25
PROVIDERS: Emergency Medicine; EMERGENCY PHYSICIAN Emergency Medicine; FAMILY PHYSICIAN Family Medicine
DX: I48.91 Unspecified atrial fibrillation (principal); I10 Essential (primary) hypertension; E78.5 Hyperlipidemia, unspecified; Z79.01 Long term (current) use of anticoagulants
CPT/HCPCS: 92960; 99285; 99152; 80053; 84443; 85027; 93005

== ENCOUNTER 2025-03-12 17:59 | Emergency (ER) | payer OTHER, SELFPAY ==
[2025-03-12] VITALS (21 sets, daily range): BP systolic 125–180; BP diastolic 61–100; BMI 35.8
[2025-03-12 18:25] LABS: % Basophils 0.8 % (0-2); % Eosinophils 1.2 % (0-6); % Immature Granulocytes 0.3 % (0-0.5); % Lymphocytes 27.1 % (20.5-51.1); % Monocytes 7.8 % (1.7-9.3); % Neutrophils 62.8 % (42.2-75.2); Absolute Basophils 0.1 10^3/uL (0-0.2); Absolute Eosinophils 0.1 10^3/uL (0-0.7); Absolute Lymphocytes 2.5 10^3/uL (1.2-3.4); Absolute Monocytes 0.7 10^3/uL (0.1-0.6); Absolute Neutrophils 5.8 10^3/uL (1.4-6.5); Hematocrit 45.9 % (37.0-47.0); Hemoglobin 15.9 g/dL (12.0-16.0); Mean Corp Hgb Conc. 34.6 g/dL (33.0-37.0); Mean Corpuscular Hgb 30.1 pg (27.0-31.0); Mean Corpuscular Volume 86.9 fL (81.0-99.0); Mean Platelet Volume 9.8 fL (7.4-10.4); Nucleated Red Blood Cells % 0 %; Platelet Count 235 10^3/uL (130-400); Red Blood Cell Count 5.28 10^6/uL (4.20-5.40); Red Cell Dist. Width 12.7 % (11.5-14.5); White Blood Cell Count 9.3 10^3/uL (4.8-10.8)
[2025-03-12 18:34] LABS: ALT (SGPT) 21 U/L (0-35); AST (SGOT) 26 U/L (14-36); Alkaline Phosphatase 71 U/L (38-126); Blood Urea Nitrogen 17 mg/dl (7-17); Calcium 10.6 mg/dl (8.4-10.2); Carbon Dioxide 27 mmol/L (22-30); Chloride 105 mmol/L (98-107); Glucose 105 mg/dl (70-99); Sodium 145 mmol/L (135-145); Total Bilirubin 0.8 mg/dl (0.2-1.3); eGFR > 60.00
--- NOTE | 2025-03-12 20:52 | ED.GENMED ---
History of Present Illness
General
Chief Complaint: Heart Rate Problem
Source: patient
Exam Limitations: none
Time Seen by Provider: 03/12/25 19:42
Nursing documentation reviewed up to this point in time: agreed with
History of Present Illness
History of Present Illness:
The patient is a 74-year-old female with a past medical history of atrial fibrillation who reports that she went into A-fib yesterday morning. Patient reports that it is uncomfortable when she goes to A-fib because she experiences shortness of
breath and palpitations. Patient denies chest pain. She denies any recent illnesses including nausea, vomiting or diarrhea. Patient reports that she is here to get cardioverted. She reports that she consistently takes her Eliquis without missing
doses. She denies leg pain or leg swelling.
Past History
Past History
ED Past Medical History: Arrthythmia (Atrial fibrillation), HTN and Other (Migraines, ovarian cyst, GERD, diverticulosis, cataracts, skin cancer)
ED Past Surgical History: Cholecystectomy and Gynecological (Ovarian cystectomy)
Social History
Tobacco: Non-smoker
Alcohol: Occasional
Personal:
Living: with family
Family History
Family History: Other (Mother with A. fib brother with hypertension)
Review of Systems
Review of Systems
Allergies reviewed?: Yes
All Other Systems: ROS reviewed and negative except as documented in HPI and ROS
Constitutional: Reports no symptoms
EENT: Reports no symptoms
Respiratory: Reports trouble breathing
Cardiac: Reports palpitations
ABD/GI: Reports no symptoms
: Reports no symptoms
Musculoskeletal: Reports no symptoms
Skin: Reports no symptoms
Neurological: Reports no symptoms
Endocrine: Reports no symptoms
Hematologic/Lymphatic: Reports no symptoms
Psychiatric: Reports no symptoms
Phy Exam
Physical Exam
Physical Exam:
Physical Exam
General: no apparent distress, not acutely ill, well and comfortable appearing
Neck: supple. no meningeal signs. normal psoterior pharynx
Heart: Tachycardic, irregular
Lungs: no acute respiratory distress. clear bilaterally
Abdomen: normal bowel sounds. not tender. no CVAT
Neuro: alert and oriented. no focal neurological deficits
Skin: no rash
Psychiatric: well kept. interactive and cooperative
Extremities: no edema. no calf tenderness. negative homans. good distal pulses
Course
Orders/Labs/Results
Orders:
Orders
03/12/25 18:00
EKG [Electrocardiogram (*1)] Stat
Reason for Study: Atrial Fibrillation
EKG- Treatment ONCE
03/12/25 18:12
CMP [Comprehensive Metabolic Panel] Urgent
Complete Blood Count/With Diff Urgent
03/12/25 20:17
Propofol [Diprivan] 20 ml .ROUTE .STK-MED
03/12/25 20:34
EKG [Electrocardiogram (*1)] Urgent
Reason for Study: Other
Other Reason for Exam: post cardioversion
EKG- Treatment ONCE
Abnormal Lab Results
03/12/25
18:12
Absolute Monos (auto) 0.7 H 10^3/uL
(0.1-0.6)
Glucose 105 H mg/dl
(70-99)
Calcium 10.6 H mg/dl
(8.4-10.2)
03/12/25 18:12
03/12/25 18:12
Vital Signs
Initial and Last Documented VS:
Initial Vital Signs
Temp Pulse Resp BP Pulse Ox
98.4 F 101 18 156/92 99
03/12/25 18:05 03/12/25 18:05 03/12/25 18:05 03/12/25 18:05 03/12/25 18:05
Last Documented Vital Signs
Temp Pulse Resp BP Pulse Ox
98.3 F 41 9 164/72 98
03/12/25 21:43 03/12/25 22:40 03/12/25 22:40 03/12/25 22:40 03/12/25 22:40
Procedures
Moderate Sedation
ASA Risk Score: Class II
Chart and allergies reviewed: Yes
Consent for anesthesia obtained: Yes
Time out completed (validating right patient & procedure): Yes
Moderate Sedation Start Time(when first medication is given): 20:24
History of difficult intubation: No
Airway free of obstruction: Yes
Patient has a gag reflex: Yes
Patient is able to open mouth: Yes
Patient has no dentures: Yes
Patient has no loose teeth: Yes
Medication administered by Provider during Moderate Sedation: IV Propofol (mg) (70)
Total dose administered: 70
Time drug administered: 20:24
Moderate Sedation Procedure End Time: 20:34
Cardioversion
Indication:: Afib
Synchronized?: Yes
Energy Used: 200 joules
Number of attempts: 1
Successful?: Yes
Complications: none
MDM/Problems Addressed
Differential Diagnosis Includes:
Acute on chronic A-fib with RVR, hyponatremia, acute dehydration
MDM/Problems Addressed:
Patient presents with acute palpitations and shortness of breath which she attributes to A-fib
Chronic conditions affecting care: Arrhythmia
Acute Exacerbation and/or Progression of Chronic Illness:
Patient likely has acute tachycardia due to chronic atrial fibrillation
Acute Exacerbation and/or Progression of Chronic Illness: Arrhythmia
*Pulse Oximetry
Patient hypoxic: no
*EKG
Interpreted by ED Provider?: Yes
Interpretation: abnormal
Comparison EKG: changes noted
Rate: tachycardiac
Rhythm: a-fib
[place]: left axis deviation
Interval: normal interval
QRS Pattern: left vent hypertrophy
Ischemia: non-specific ST changes
*Housing Installer Interpretation
Rate: tachycardiac
Interpretation: abnormal
Rhythm: a-fib
*Critical Care Note
Total Time (30-74mins, 75-104mins- exclusive of procedures): Not Applicable
Data Reviewed
Review of Other/Old Records Reveals: Testing (Cardiac echo in 2023 shows EF of 54%)
Source: patient
Patient Management
Social determinants of health affecting care: Living situation and Strong social support
Update Note
Update Note:
After cardioversion, EKG done which shows sinus bradycardia with left axis deviation with nonspecific intraventricular block and LVH. Heart rate 48. Patient reports that she frequently has heart rates in the 40s. I went back and I have confirmed
that she has very similar looking EKGs with a similar heart rate on prior EKGs
ED Attending Note
-
Portions of this chart may have been created with voice recognition software.� Occasional wrong word or��sound alike� substitutions may have occurred due to the inherent limitations of voice recognition software.
Discharge Plan
Departure
Patient Disposition: Home (Routine Discharge)
Date of Disposition: 03/12/25
Time of Disposition: 22:40
Patient with high blood pressure during this ER visit?: Yes
Condition: Good
Covid-19: Not Applicable
Discharge Problem:
Afib
Instructions: Atrial Fibrillation (DC), Cardioversion - Discharge instructions, Sedation for procedures in adults - Discharge instructions
Prescriptions:
No Action
amlodipine 10 MG tablet
10 mg PO DAILY
lisinopril 40 MG tablet
40 mg PO DAILY
sotalol 80 MG tablet
80 mg PO BID
Eliquis 5 MG tablet
5 mg PO BID
Lactobacillus Combination No.4 [Probiotic] 1 EACH Capsule
1 ea PO DAILY
azelastine 1 SPRAY aerosol,spray
1 spray intranasal PRN PRN (Reason: nasal congestion)
Blink Tears 15 ML drops
1 drp OP PRN PRN (Reason: dry eye)
omeprazole 20 MG capsule,delayed release(DR/EC)
20 mg PO PRN PRN (Reason: gerd)
cholecalciferol (vitamin D3) [Vitamin D3] 50 mcg (2,000 unit) Tablet
50 mcg PO DAILY
hydrochlorothiazide 12.5 mg Tablet
12.5 mg PO DAILY
magnesium
125 mg PO DAILY
Referrals:
UNKNOWN - PT DOES,NOT KNOW [Family Provider] -
Activity Restrictions/Additional Instructions:
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
Interventions
Interventions:
*Risk Screen - Suicide Last Done: 03/12/25 18:05
*General Assessment Last Done: 03/12/25 18:05
*Neglect/Abuse Screening Last Done: 03/12/25 18:05
*ED- Fall Risk Assessment Last Done: 03/12/25 18:05
*ED COVID-19 Vaccine History Last Done: 03/12/25 18:05
*Nursing Disposition Last Done: 03/12/25 22:44
ED- Cardiac Assessment Last Done: 03/12/25 19:58
ED- Pulmonary Assessment Last Done: 03/12/25 19:58
Discharge Date and Time
Discharge Date/Time: 03/12/25 22:56
Print Language: IRISH
== END 2025-03-12 22:56 | disposition home or self-care (01) ==
LOC: EMR 17:59
PROVIDERS: Student in an Organized Health Care Education/Training Program; EMERGENCY PHYSICIAN Emergency Medicine
DX: I48.91 Unspecified atrial fibrillation (principal); I10 Essential (primary) hypertension; Z85.828 Personal history of other malignant neoplasm of skin; Z90.49 Acquired absence of other specified parts of digestive tract
CPT/HCPCS: 92960; 99152; 99285; 80053; 85025; 93005

== ENCOUNTER 2025-04-25 20:24 | Emergency (ER) | payer OTHER, SELFPAY ==
[2025-04-25 20:29] VITALS: BP 158/91
[2025-04-25 20:48] LABS: % Basophils 0.9 % (0-2); % Eosinophils 1.1 % (0-6); % Immature Granulocytes 0.3 % (0-0.5); % Lymphocytes 24.3 % (20.5-51.1); % Monocytes 8.4 % (1.7-9.3); Absolute Basophils 0.1 10^3/uL (0-0.2); Absolute Eosinophils 0.1 10^3/uL (0-0.7); Absolute Lymphocytes 2.3 10^3/uL (1.2-3.4); Absolute Monocytes 0.8 10^3/uL (0.1-0.6); Absolute Neutrophils 6.2 10^3/uL (1.4-6.5); Hematocrit 45.8 % (37.0-47.0); Mean Corp Hgb Conc. 34.9 g/dL (33.0-37.0); Mean Corpuscular Hgb 30.2 pg (27.0-31.0); Mean Corpuscular Volume 86.4 fL (81.0-99.0); Mean Platelet Volume 9.8 fL (7.4-10.4); Nucleated Red Blood Cells % 0 %; Platelet Count 249 10^3/uL (130-400); Red Cell Dist. Width 12.7 % (11.5-14.5); White Blood Cell Count 9.5 10^3/uL (4.8-10.8)
[2025-04-25 21:10] LABS: ALT (SGPT) 21 U/L (0-35); AST (SGOT) 21 U/L (14-36); Albumin 4.8 g/dl (3.5-5.0); Alkaline Phosphatase 73 U/L (38-126); Blood Urea Nitrogen 16 mg/dl (7-17); Calcium 10.5 mg/dl (8.4-10.2); Carbon Dioxide 24 mmol/L (22-30); Chloride 110 mmol/L (98-107); Glucose 95 mg/dl (70-99); Potassium 3.9 mmol/L (3.5-5.1); Sodium 142 mmol/L (135-145); Total Bilirubin 0.7 mg/dl (0.2-1.3); eGFR > 60.00
--- NOTE | 2025-04-25 22:53 | ED.GENMED ---
History of Present Illness
<Rafael Sow PA-C - Last Filed: 04/26/25 00:44>
General
Chief Complaint: Cardiac Symptoms
Source: patient
Exam Limitations: none
Time Seen by Provider: 04/25/25 22:32
History of Present Illness
History of Present Illness:
75-year-old female with history of paroxysmal atrial fibrillation has had cardioversions and ablations in the past on Eliquis and sotalol not missing any doses presents with the onset of A-fib this morning. She woke up went to the bathroom and
noticed her heart rate was fast. She is symptomatic from her A-fib with shortness of breath. She denies lightheadedness or chest pain. She was here in February for the same. That was when her most recent cardioversion was. They have tried
diltiazem in the past to rate control which does help the rate however never does convert her into sinus rhythm. Patient states she does not feel well until being in a sinus rhythm. No leg swelling. No cough or fever. No other complaints
Past History
<Rafael Sow PA-C - Last Filed: 04/26/25 00:44>
Past History
ED Past Medical History: Arrthythmia (Atrial fibrillation), HTN and Other (Migraines, ovarian cyst, GERD, diverticulosis, cataracts, skin cancer)
ED Past Surgical History: Cholecystectomy and Gynecological (Ovarian cystectomy)
Social History
Tobacco: Non-smoker
Alcohol: Occasional
Personal:
Living: with family
Family History
Family History: Other (Mother with A. fib brother with hypertension)
Phy Exam
<Rafael Sow PA-C - Last Filed: 04/26/25 00:44>
Physical Exam
Physical Exam:
General: Well-appearing female no acute respiratory distress
HEENT: Normocephalic atraumatic
Heart: Irregular rate and rhythm
Lungs: Clear no wheeze or rales
Extremities: No cyanosis or edema
Course
<Rafael Sow PA-C - Last Filed: 04/26/25 00:44>
Orders/Labs/Results
Orders:
Orders
04/25/25 20:25
ECG [Electrocardiogram (*1)] Urgent
Reason for Study: Atrial Fibrillation
04/25/25 20:26
EKG- Treatment ONCE
04/25/25 20:41
Complete Blood Count/With Diff Urgent
Comprehensive Metabolic Panel Urgent
04/26/25 00:15
Propofol [Diprivan] 20 ml .ROUTE .STK-MED
04/26/25 00:25
EKG [Electrocardiogram (*1)] Urgent
Reason for Study: Atrial Fibrillation
Other Reason for Exam: cardioverted
EKG- Treatment ONCE
Abnormal Lab Results
04/25/25
20:41
Absolute Monos (auto) 0.8 H 10^3/uL
(0.1-0.6)
Chloride 110 H mmol/L
(98-107)
Calcium 10.5 H mg/dl
(8.4-10.2)
04/25/25 20:41
04/25/25 20:41
Vital Signs
Initial and Last Documented VS:
Initial Vital Signs
Temp Pulse Resp BP Pulse Ox
98.1 F 89 18 158/91 99
04/25/25 20:29 04/25/25 20:29 04/25/25 20:29 04/25/25 20:29 04/25/25 20:29
Last Documented Vital Signs
Temp Pulse Resp BP Pulse Ox
98.1 F 46 25 123/72 100
04/25/25 20:29 04/26/25 01:15 04/26/25 01:15 04/26/25 01:15 04/26/25 01:00
<Ari Garcia MD - Last Filed: 04/26/25 03:07>
Orders/Labs/Results
Orders:
Orders
04/25/25 20:25
ECG [Electrocardiogram (*1)] Urgent
Reason for Study: Atrial Fibrillation
04/25/25 20:26
EKG- Treatment ONCE
04/25/25 20:41
Complete Blood Count/With Diff Urgent
Comprehensive Metabolic Panel Urgent
04/26/25 00:15
Propofol [Diprivan] 20 ml .ROUTE .STK-MED
04/26/25 00:25
EKG [Electrocardiogram (*1)] Urgent
Reason for Study: Atrial Fibrillation
Other Reason for Exam: cardioverted
EKG- Treatment ONCE
Abnormal Lab Results
04/25/25
20:41
Absolute Monos (auto) 0.8 H 10^3/uL
(0.1-0.6)
Chloride 110 H mmol/L
(98-107)
Calcium 10.5 H mg/dl
(8.4-10.2)
04/25/25 20:41
04/25/25 20:41
Vital Signs
Initial and Last Documented VS:
Initial Vital Signs
Temp Pulse Resp BP Pulse Ox
98.1 F 89 18 158/91 99
04/25/25 20:29 04/25/25 20:29 04/25/25 20:29 04/25/25 20:29 04/25/25 20:29
Last Documented Vital Signs
Temp Pulse Resp BP Pulse Ox
98.1 F 46 25 123/72 100
04/25/25 20:29 04/26/25 01:15 04/26/25 01:15 04/26/25 01:15 04/26/25 01:00
Procedures
<Rafael Sow PA-C - Last Filed: 04/26/25 00:44>
Moderate Sedation
ASA Risk Score: Class II
Chart and allergies reviewed: Yes
Consent for anesthesia obtained: Yes
Time out completed (validating right patient & procedure): Yes
Moderate Sedation Start Time(when first medication is given): 12:20
History of difficult intubation: No
Airway free of obstruction: Yes
Patient has a gag reflex: Yes
Patient is able to open mouth: Yes
Patient has no dentures: Yes
Patient has no loose teeth: Yes
Medication administered by Provider during Moderate Sedation: IV Propofol (mg)
Total dose administered: 40
Time drug administered: 12:20
Moderate Sedation Procedure End Time: 12:35
<Rafael Sow PA-C - Last Filed: 04/26/25 00:44>
MDM/Problems Addressed
Differential Diagnosis Includes:
Patient with palpitations and shortness of breath. She has atrial fibrillation in the EKG rate is in the low 100s. She is not hypoxic. Subjectively she feels short of breath. Not volume overloaded. Reviewed her chart. She was here in February had
an cardioversion.
<Rafael Sow PA-C - Last Filed: 04/26/25 00:44>
*Critical Care Note
Total Time (30-74mins, 75-104mins- exclusive of procedures): Not Applicable
<Rafael Sow PA-C - Last Filed: 04/26/25 00:44>
Update Note
Update Note:
After chart review, it was decided patient would be cardioverted. Written consent obtained. Moderate sedation performed by emergency room attending. Patient was cardioverted using 200 J of synchronized energy. 1 shock was provided to cardiovert
the patient back into a sinus bradycardia. This is her baseline. She will be recovered from anesthesia and her friend will be taking her home
ED Attending Note
<Rafael Sow PA-C - Last Filed: 04/26/25 00:44>
-
Portions of this chart may have been created with voice recognition software.� Occasional wrong word or��sound alike� substitutions may have occurred due to the inherent limitations of voice recognition software.
<Ari Garcia MD - Last Filed: 04/26/25 03:07>
ED Attending Note
Patient seen and examined by attending physician: Yes
ED Attending Note:
Patient with history of paroxysmal atrial fibrillation on Eliquis, presents to ED secondary to recurrent shortness of breath upon waking up this morning, with increased heart rate. Patient unfortunately has had number of similar symptoms in the
past, requiring cardioversion, including February of this year. Patient has also received cardiac ablation in the past. Denies chest pain. Denies dizziness. Denies nausea or vomiting. Denies recent change in medications or diet. No recent illness.
Physical Exam
General: no apparent distress, not acutely ill. afebrile
Head: nc/at. eomi
Neck: supple. no meningeal signs.
Heart: irregularly irregular
Lungs: no acute respiratory distress. clear bilaterally
Abdomen: normal bowel sounds. not tender.
Neuro: alert and oriented x 3. no focal neurological deficits
Skin: no rash
Psychiatric: well kept. interactive and cooperative
Extremities: no edema. no calf tenderness.
History and exam, along with EKG consistent with rapid atrial fibrillation with symptoms. As such, after discussion, decision made to perform cardioversion.
Procedure consent on the chart.
After propofol administration, patient successfully cardioverted with 200 J, confirmed by repeat EKG.
Patient will be discharged home in stable condition, to the care of her family, with recommendation to follow-up with her administrative dietitian for reevaluation.
Discharge Plan
Departure
Patient Disposition: Home (Routine Discharge)
Date of Disposition: 04/26/25
Time of Disposition: 00:43
Patient with high blood pressure during this ER visit?: No
Discharge Problem:
Afib
Instructions: MODERATE SEDATION ADULT
Prescriptions:
No Action
amlodipine 10 MG tablet
10 mg PO DAILY
lisinopril 40 MG tablet
40 mg PO DAILY
sotalol 80 MG tablet
80 mg PO BID
Eliquis 5 MG tablet
5 mg PO BID
Lactobacillus Combination No.4 [Probiotic] 1 EACH Capsule
1 ea PO DAILY
azelastine 1 SPRAY aerosol,spray
1 spray intranasal PRN PRN (Reason: nasal congestion)
Blink Tears 15 ML drops
1 drp OP PRN PRN (Reason: dry eye)
omeprazole 20 MG capsule,delayed release(DR/EC)
20 mg PO PRN PRN (Reason: gerd)
cholecalciferol (vitamin D3) [Vitamin D3] 50 mcg (2,000 unit) Tablet
50 mcg PO DAILY
hydrochlorothiazide 12.5 mg Tablet
12.5 mg PO DAILY
magnesium
125 mg PO DAILY
Referrals:
Sergio Gonzales PA-C [Family Provider, Family Practice]
Activity Restrictions/Additional Instructions:
Please return here for worsening symptoms otherwise follow-up with your administrative dietitian
Interventions
Interventions:
*Risk Screen - Suicide Last Done: 04/25/25 20:29
*General Assessment Last Done: 04/25/25 20:29
*Neglect/Abuse Screening Last Done: 04/25/25 20:29
*ED- Fall Risk Assessment Last Done: 04/25/25 23:39
*ED COVID-19 Vaccine History Last Done: 04/25/25 23:39
*Nursing Disposition Last Done: 04/26/25 02:11
ED- Pulmonary Assessment Last Done: 04/25/25 23:25
ED- Cardiac Assessment Last Done: 04/25/25 23:25
Discharge Date and Time
Discharge Date/Time: 04/26/25 01:35
Print Language: KYRGYZ
[2025-04-25 23:30] VITALS: BMI 34.8
[2025-04-25 23:36] VITALS: BP 145/90
[2025-04-26] VITALS (11 sets, daily range): BP systolic 116–153; BP diastolic 49–104
== END 2025-04-26 01:35 | disposition home or self-care (01) ==
LOC: EMR 20:24
PROVIDERS: Emergency Medicine; EMERGENCY PHYSICIAN Emergency Medicine; FAMILY PHYSICIAN Physician Assistant Medical
DX: I48.0 Paroxysmal atrial fibrillation (principal); I10 Essential (primary) hypertension; Z79.01 Long term (current) use of anticoagulants
CPT/HCPCS: 92960; 99152; 99285; 80053; 85025; 93005

== ENCOUNTER 2025-05-30 12:38 | Emergency (ER) | payer OTHER, SELFPAY ==
[2025-05-30 12:49] VITALS: BP 158/85
--- NOTE | 2025-05-30 14:24 | ED.GENMED ---
History of Present Illness
General
Chief Complaint: Heart Rate Problem
Source: patient
Time Seen by Provider: 05/30/25 13:47
History of Present Illness
History of Present Illness:
75-year-old female presents emergency department with complaints of feeling like she is in A-fib since 7:30 PM last night. Patient has intermittent episodes of this but usually self resolves. She denies chest pain or pressure, dyspnea, headache,
dizziness, nausea, vomiting. She does note mild dyspnea on exertion with the atrial fibrillation which is a typical symptom for her when she has A-fib. She is fully anticoagulated and has not missed any of her doses. She is compliant with all her
medications including sotalol. Patient is due for an ablation in the near future with her manager ccu.
Past History
Past History
ED Past Medical History: Arrthythmia (Atrial fibrillation), HTN and Other (Migraines, ovarian cyst, GERD, diverticulosis, cataracts, skin cancer)
ED Past Surgical History: Cholecystectomy and Gynecological (Ovarian cystectomy)
Social History
Tobacco: Non-smoker
Alcohol: Occasional
Drug: None
Personal:
Living: with family
Family History
Family History: Other (Mother with A. fib brother with hypertension)
Phy Exam
Physical Exam
Physical Exam:
GENERAL: Alert , in no apparent distress
EYE: pupils equal and reactive
NECK: Supple, no significant adenopathy.
ENT: o/p clr, mmm.
CARDIAC: Irregularly irregular, not tachycardic
LUNGS: Clear breath sounds bilaterally, no acute respiratory distress, no wheezes rales or rhonchi
ABDOMEN: Soft, without focal tenderness, no r/g, no cvat
NEUROLOGICAL: Alert and oriented, no focal neuro deficits
SKIN: Warm and dry, skin intact.
MUSCULOSKELETAL: No edema, well perfused.
PSYCH: Normal and appropriate interaction.
Course
Orders/Labs/Results
Orders:
Orders
05/30/25 12:40
EKG [Electrocardiogram (*1)] Urgent
Reason for Study: Atrial Fibrillation
EKG- Treatment ONCE
05/30/25 14:21
Diltiazem [Cardizem] 60 mg PO NOW STA
05/30/25 14:26
Complete Blood Count/With Diff Urgent
Comprehensive Metabolic Panel Urgent
Magnesium Urgent
TSH Reflex To Free T4 Urgent
Troponin I Urgent
05/30/25 14:27
Diltiazem HCl [Cardizem] 10 mg IV NOW STA
Abnormal Lab Results
05/30/25
14:26
Chloride 111 H mmol/L
(98-107)
Glucose 111 H mg/dl
(70-99)
Calcium 11.0 H mg/dl
(8.4-10.2)
05/30/25 14:26
05/30/25 14:26
Vital Signs
Initial and Last Documented VS:
Initial Vital Signs
Temp Pulse Resp BP Pulse Ox
98.0 F 81 18 158/85 97
05/30/25 12:49 05/30/25 12:49 05/30/25 12:49 05/30/25 12:49 05/30/25 12:49
Last Documented Vital Signs
Temp Pulse Resp BP Pulse Ox
98.0 F 92 16 151/100 98
05/30/25 12:49 05/30/25 14:40 05/30/25 14:32 05/30/25 14:40 05/30/25 14:32
*Pulse Oximetry
SaO2: 97
Oxygen Mode of Delivery: Room air
Update Note
Update Note:
Patient presents to the Emergency Department with ____palpitations
Number and Complexity of Problems Addressed at the Encounter
� Chronic conditions affecting care:
� Acute Exacerbation and/or Progression of Chronic Illness:
� Differential Diagnosis includes: But not limited to A-fib, a flutter, electrolyte disorder, SVT, etc.
Amount and/or Complexity of Data to be Reviewed and Analyzed
� I performed an independent evaluation of and my interpretation is:
EKG: Read by me, A-fib, LAD, no acute ischemia, intraventricular delay
CT:
Xrays:
Laboratory Studies: Unremarkable
Other:
� Review of other/old records reveals:
� Clinical information was obtained by an independent historian:
� Prescriptions/Medications Considered but not given:
� Further testing considered but not performed:
Risk of Complications and/or Morbidity or Mortality of Patient Management
� Social determinants of health affecting care:
� Discussion with other providers (PCP, Hospitalists, Consultants, etc):
� Escalation of care including admission/observation vs risk of discharge considered: Case discussed with Dr. Escudero via [place] text aware of history, physical, vitals, etc. Agrees with plan for rate control. Patient's heart
rate now in the 70s. We will discontinue the amlodipine and prescribe the patient Cardizem upon discharge which I have done and called into her pharmacy. Patient comfortable with this plan, no symptoms, discussed with her importance of follow-up
and reasons return to the ER.
ED Attending Note
-
Portions of this chart may have been created with voice recognition software.� Occasional wrong word or��sound alike� substitutions may have occurred due to the inherent limitations of voice recognition software.
Discharge Plan
Departure
Patient Disposition: Home (Routine Discharge)
Date of Disposition: 05/30/25
Time of Disposition: 15:42
Patient with high blood pressure during this ER visit?: Yes
Condition: Good
Discharge Problem:
Afib
Instructions: Atrial Fibrillation (DC), BLOOD PRESSURE
Prescriptions:
New
diltiazem HCl [Cardizem] 120 mg tablet
120 mg PO DAILY Qty: 30 0RF
No Action
amlodipine 10 MG tablet
10 mg PO DAILY
lisinopril 40 MG tablet
40 mg PO QPM
sotalol 80 MG tablet
80 mg PO BID
Eliquis 5 MG tablet
5 mg PO BID
cholecalciferol (vitamin D3) [Vitamin D3] 50 mcg (2,000 unit) Tablet
50 mcg PO DAILY@1200
hydrochlorothiazide 12.5 mg Tablet
12.5 mg PO DAILY
magnesium oxide 200 mg magnesium Tablet
200 mg PO DAILY@1200
Referrals:
Sergio Gonzales PA-C [Family Provider, Family Practice]
Activity Restrictions/Additional Instructions:
PLEASE CONTACT YOUR MACHINE LOAD CLERK FOR PROMPT FOLLOW-UP. IF YOU DEVELOP PALPITATIONS, DIZZINESS, SHORTNESS OF BREATH, CHEST PAIN, GET WORSE, DO NOT GET BETTER, OR OTHER WORRISOME SIGNS, PLEASE RETURN TO THE ER IMMEDIATELY. PLEASE DISCONTINUE
AMLODIPINE GIVEN THAT YOU ARE NOW STARTING THIS NEW MEDICATION, CARDIZEM.
Interventions
Interventions:
*General Assessment Last Done: 05/30/25 12:49
ED- Cardiac Assessment Last Done: 05/30/25 14:32
ED- Pulmonary Assessment Last Done: 05/30/25 14:32
Discharge Date and Time
Print Language: GEORGIAN
[2025-05-30 14:32] VITALS: BP 151/100; BMI 39.1
[2025-05-30] MEDS: CARDIZEM 10 MG IV (14:40)
[2025-05-30 14:45] LABS: Hematocrit 46.3 % (37.0-47.0); Hemoglobin 15.9 g/dL (12.0-16.0); Mean Corp Hgb Conc. 34.3 g/dL (33.0-37.0); Mean Corpuscular Volume 86.7 fL (81.0-99.0); Nucleated Red Blood Cells % 0 %; Platelet Count 213 10^3/uL (130-400); Red Cell Dist. Width 13.0 % (11.5-14.5)
[2025-05-30 15:12] LABS: ALT (SGPT) 20 U/L (0-35); AST (SGOT) 23 U/L (14-36); Albumin 4.9 g/dl (3.5-5.0); Alkaline Phosphatase 71 U/L (38-126); Blood Urea Nitrogen 14 mg/dl (7-17); Calcium 11.0 mg/dl (8.4-10.2); Carbon Dioxide 22 mmol/L (22-30); Chloride 111 mmol/L (98-107); Estimated Creatinine Clearance 78 ml/min; Glucose 111 mg/dl (70-99); Magnesium 2.1 mg/dl (1.6-2.3); Potassium 3.9 mmol/L (3.5-5.1); Sodium 142 mmol/L (135-145); Total Protein 8.1 g/dl (6.3-8.2); eGFR > 60.00
[2025-05-30 15:25] LABS: Troponin I < 0.012 ng/ml
[2025-05-30] MEDS: CARDIZEM CD 120 MG PO (16:03)
[2025-05-30 16:15] VITALS: BP 132/80
== END 2025-05-30 16:19 | disposition home or self-care (01) ==
LOC: EMR 12:38
PROVIDERS: Student in an Organized Health Care Education/Training Program; EMERGENCY PHYSICIAN Emergency Medicine; FAMILY PHYSICIAN Physician Assistant Medical
DX: I48.91 Unspecified atrial fibrillation (principal); I10 Essential (primary) hypertension; Z85.828 Personal history of other malignant neoplasm of skin
CPT/HCPCS: 99284; 96374; 80053; 83735; 84443; 84484; 85025; 93005

== ENCOUNTER 2025-06-03 19:58 | Emergency (ER) | payer OTHER, SELFPAY ==
[2025-06-03] VITALS (7 sets, daily range): BP systolic 138–170; BP diastolic 69–101; BMI 35.0
[2025-06-03 20:41] LABS: Hematocrit 45.5 % (37.0-47.0); Hemoglobin 15.3 g/dL (12.0-16.0); Mean Corp Hgb Conc. 33.6 g/dL (33.0-37.0); Mean Corpuscular Volume 88.3 fL (81.0-99.0); Nucleated Red Blood Cells % 0 %; Platelet Count 227 10^3/uL (130-400); Red Cell Dist. Width 13.0 % (11.5-14.5)
[2025-06-03 20:57] LABS: INR 0.99; PT 13.4 Sec (11.4-14.6)
[2025-06-03 20:58] LABS: ALT (SGPT) 17 U/L (0-35); AST (SGOT) 21 U/L (14-36); Albumin 4.6 g/dl (3.5-5.0); Alkaline Phosphatase 82 U/L (38-126); Blood Urea Nitrogen 19 mg/dl (7-17); Calcium 10.3 mg/dl (8.4-10.2); Carbon Dioxide 27 mmol/L (22-30); Chloride 106 mmol/L (98-107); Glucose 135 mg/dl (70-99); Potassium 4.2 mmol/L (3.5-5.1); Sodium 141 mmol/L (135-145); Total Protein 7.2 g/dl (6.3-8.2); eGFR 52.40
[2025-06-03 21:04] LABS: Troponin I < 0.012 ng/ml
--- NOTE | 2025-06-03 22:55 | ED.GENMED ---
History of Present Illness
General
Chief Complaint: Cardiac Symptoms
Source: patient and records
Exam Limitations: none
Time Seen by Provider: 06/03/25 22:29
Nursing documentation reviewed up to this point in time: agreed with
History of Present Illness
History of Present Illness:
75-year-old female presents with fatigue shortness of breath palpitation she has been in A-fib for for 5 days seen in the ER had some changes to her meds discharged to home she has been cardioverted before she has been ablated before scheduled for
repeat ablation she has been compliant with her Eliquis 5 twice a day with the exception of tonight's 9 PM dose she has been here in the ER, last ate around 6 PM she is requesting cardioversion
Past History
Past History
ED Past Medical History: Arrthythmia (Atrial fibrillation), HTN and Other (Migraines, ovarian cyst, GERD, diverticulosis, cataracts, skin cancer)
ED Past Surgical History: Cholecystectomy and Gynecological (Ovarian cystectomy)
Social History
Tobacco: Non-smoker
Alcohol: Occasional
Drug: None
Personal:
Living: with family
Employment: Retired
Family History
Family History: Other (Mother with A. fib brother with hypertension)
Review of Systems
Review of Systems
All Other Systems: Not applicable
Constitutional: Reports fatigue; Denies fever
Respiratory: Reports trouble breathing; Denies cough
Cardiac: Reports palpitations
ABD/GI: Reports no symptoms
: Reports no symptoms
Musculoskeletal: Reports no symptoms
Skin: Reports no symptoms
Neurological: Reports weakness
Hematologic/Lymphatic: Reports no symptoms
Psychiatric: Reports no symptoms
Phy Exam
Physical Exam
Physical Exam:
Physical Exam
General: no apparent distress, not acutely ill
Neck: No jaw
Heart: Rapid and irregular
Lungs: no acute respiratory distress. clear bilaterally
Neuro: alert and oriented. no focal neurological deficits
Skin: no rash
Psychiatric: well kept. interactive and cooperative
Extremities: no edema.
Course
Orders/Labs/Results
Orders:
Orders
06/03/25 20:10
Electrocardiogram (*1) Urgent
Reason for Study: Chest Pain
EKG- Treatment ONCE
06/03/25 20:20
Complete Blood Count/With Diff Urgent
Comprehensive Metabolic Panel Urgent
Prothrombin Time Urgent
Troponin I Urgent
06/03/25 22:50
ASA Classification Routine
Apixaban [Eliquis] 5 mg PO NOW STA
Propofol [Diprivan] 100 mg IV NOW STA
06/03/25 23:09
Electrocardiogram (*1) Urgent
Reason for Study: Atrial Fibrillation
EKG- Treatment ONCE
Abnormal Lab Results
06/03/25
20:20
BUN 19 H mg/dl
(7-17)
Creatinine 1.1 H mg/dL
(0.6-1.0)
Glucose 135 H mg/dl
(70-99)
Calcium 10.3 H mg/dl
(8.4-10.2)
06/03/25 20:20
06/03/25 20:20
Vital Signs
Initial and Last Documented VS:
Initial Vital Signs
Temp Pulse Resp BP Pulse Ox
97.8 F 98 20 170/99 99
06/03/25 20:07 06/03/25 20:07 06/03/25 20:07 06/03/25 20:07 06/03/25 20:07
Last Documented Vital Signs
Temp Pulse Resp BP Pulse Ox
97.8 F 107 20 162/86 100
06/03/25 20:07 06/03/25 22:30 06/03/25 20:07 06/03/25 22:26 06/03/25 22:56
Procedures
Cardioversion
Indication:: Afib
Performed by:: milind
Synchronized?: Yes
Energy Used: 200 joules
Number of attempts: 1
Successful?: Yes
Complications: no
ASA Risk Score: Class II
Any reaction or bad outcome to prior sedation/anesthesia?: No history of a reaction
Sedation level to be attained: moderate
Chart and allergies reviewed: Yes
Patient reassessed prior to sedation: Yes
Time out completed at (validating right patient & procedure): 11:05
History of difficult intubation: No
Airway free of obstruction: Yes
Patient has a gag reflex: Yes
Patient is able to open mouth: Yes
Patient has no dentures: Yes
Patient has no loose teeth: Yes
Medication administered by Provider during Moderate Sedation: IV Propofol (mg)
Total dose administered: 50
Time drug administered: 11:05
Start Time: 11:05
Stop Time: 11:15
MDM/Problems Addressed
Differential Diagnosis Includes:
A-fib atrial tach SVT
MDM/Problems Addressed:
A-fib
Chronic conditions affecting care: Arrhythmia
Acute Exacerbation and/or Progression of Chronic Illness: Arrhythmia
*Pulse Oximetry
SaO2: 100
Oxygen Mode of Delivery: Room air
Patient hypoxic: no
*Coupling Machine Operator Interpretation
Rate: tachycardiac
Interpretation: abnormal
Heart Rate: 110
Rhythm: a-fib
*Critical Care Note
Total Time (30-74mins, 75-104mins- exclusive of procedures): Not Applicable
Update Note
Update Note:
Patient successfully cardioverted 1 synchronized 200 J shock to sinus rhythm, she will get her evening dose of Eliquis before she leaves
ED Attending Note
-
Portions of this chart may have been created with voice recognition software.� Occasional wrong word or��sound alike� substitutions may have occurred due to the inherent limitations of voice recognition software.
Discharge Plan
Departure
Patient Disposition: Home (Routine Discharge)
Date of Disposition: 06/03/25
Time of Disposition: 23:11
Patient with high blood pressure during this ER visit?: No
Condition: Good
Discharge Problem:
Afib
Instructions: MODERATE SEDATION ADULT, Atrial fibrillation - Discharge instructions
Prescriptions:
No Action
lisinopril 40 MG tablet
40 mg PO QPM
sotalol 80 MG tablet
80 mg PO BID
Eliquis 5 MG tablet
5 mg PO BID
cholecalciferol (vitamin D3) [Vitamin D3] 50 mcg (2,000 unit) Tablet
50 mcg PO DAILY@1200
magnesium oxide 200 mg magnesium Tablet
200 mg PO DAILY@1200
diltiazem HCl [Cardizem] 120 mg tablet
120 mg PO DAILY Qty: 30 0RF
Referrals:
Sergio Gonzales PA-C [Family Provider, Family Practice]
Activity Restrictions/Additional Instructions:
Follow-up with your customs examiner, continue your medications as prescribed
Interventions
Interventions:
*Risk Screen - Suicide Last Done: 06/03/25 20:07
*General Assessment Last Done: 06/03/25 20:07
*Neglect/Abuse Screening Last Done: 06/03/25 20:07
*ED- Fall Risk Assessment Last Done: 06/03/25 22:45
*ED COVID-19 Vaccine History Last Done: 06/03/25 22:45
ED- Pulmonary Assessment Last Done: 06/03/25 22:45
ED- Cardiac Assessment Last Done: 06/03/25 22:45
Discharge Date and Time
Print Language: PERSIAN
[2025-06-03] MEDS: ELIQUIS 5 MG PO (23:34)
== END 2025-06-04 00:08 | disposition home or self-care (01) ==
LOC: EMR 19:58
PROVIDERS: Emergency Medicine; EMERGENCY PHYSICIAN Emergency Medicine; FAMILY PHYSICIAN Physician Assistant Medical
DX: I48.91 Unspecified atrial fibrillation (principal)
CPT/HCPCS: 92960; 99285; 99152; 80053; 84484; 85025; 85610; 93005

== ENCOUNTER 2025-07-04 12:41 | Emergency (ER) | payer OTHER, SELFPAY ==
[2025-07-04] VITALS (18 sets, daily range): BP systolic 133–168; BP diastolic 66–94; BMI 34.5
[2025-07-04 13:04] LABS: Hematocrit 45.9 % (37.0-47.0); Hemoglobin 15.8 g/dL (12.0-16.0); Mean Corp Hgb Conc. 34.4 g/dL (33.0-37.0); Mean Corpuscular Volume 87.1 fL (81.0-99.0); Nucleated Red Blood Cells % 0.4 %; Platelet Count 218 10^3/uL (130-400); Red Cell Dist. Width 13.0 % (11.5-14.5)
[2025-07-04 13:37] LABS: ALT (SGPT) 20 U/L (0-35); AST (SGOT) 25 U/L (14-36); Albumin 4.9 g/dl (3.5-5.0); Alkaline Phosphatase 62 U/L (38-126); Blood Urea Nitrogen 19 mg/dl (7-17); Calcium 10.7 mg/dl (8.4-10.2); Carbon Dioxide 26 mmol/L (22-30); Chloride 109 mmol/L (98-107); Glucose 116 mg/dl (70-99); Potassium 4.1 mmol/L (3.5-5.1); Sodium 142 mmol/L (135-145); Total Protein 8.1 g/dl (6.3-8.2); eGFR > 60.00
--- NOTE | 2025-07-04 19:18 | ED.GENMED ---
History of Present Illness
General
Chief Complaint: Heart Rate Problem
Time Seen by Provider: 07/04/25 17:56
History of Present Illness
History of Present Illness:
75-year-old female with history of atrial fibrillation on sotalol and Eliquis presenting to the emergency department for atrial fibrillation. Patient notes that around 8 AM this morning she felt herself go into atrial fibrillation. Notes some
palpitations and shortness of breath, which is consistent with her A-fib. Reports compliance with her medications. She does follow with cardiology at [place], and is due to get her fourth ablation next month. She also notes several
cardioversions in the past. She presents for synchronized cardioversion. Denies chest pain. Denies fever. Denies additional acute medical complaints
Past History
Past History
ED Past Medical History: Arrthythmia (Atrial fibrillation), HTN and Other (Migraines, ovarian cyst, GERD, diverticulosis, cataracts, skin cancer)
ED Past Surgical History: Cholecystectomy and Gynecological (Ovarian cystectomy)
Social History
Tobacco: Non-smoker
Alcohol: Occasional
Drug: None
Personal:
Living: with family
Employment: Retired
Family History
Family History: Other (Mother with A. fib brother with hypertension)
Phy Exam
Physical Exam
Physical Exam:
General: Well-appearing, no clinical signs of dehydration, nontoxic and in no acute distress
HEENT: protecting airway
Neck: appears supple
CV: Irregular irregular rhythm, normal rate, no evidence of cyanosis
Resp: No accessory muscle use, no increased work of breathing
Abd: No distention
Extremities: No deformities, no swelling
Neuro: alert, no focal neurologic deficit
: deferred
Rectal: deferred
Psych: Normal affect
Skin: Intact
Course
Orders/Labs/Results
Orders:
Orders
07/04/25 12:42
Electrocardiogram (*1) Urgent
Reason for Study: Atrial Fibrillation
07/04/25 12:43
EKG- Treatment ONCE
07/04/25 12:59
Complete Blood Count/With Diff Urgent
Comprehensive Metabolic Panel Urgent
07/04/25 18:39
Propofol [Diprivan] 20 ml .ROUTE .STK-MED
07/04/25 19:29
Electrocardiogram (*1) Urgent
EKG- Treatment ONCE
Abnormal Lab Results
07/04/25
12:59
Lymphocytes % 19.1 L %
(20.5-51.1)
Chloride 109 H mmol/L
(98-107)
BUN 19 H mg/dl
(7-17)
Glucose 116 H mg/dl
(70-99)
Calcium 10.7 H mg/dl
(8.4-10.2)
07/04/25 12:59
07/04/25 12:59
Vital Signs
Initial and Last Documented VS:
Initial Vital Signs
Temp Pulse Resp BP Pulse Ox
97.4 F 84 20 156/89 95
07/04/25 12:51 07/04/25 12:51 07/04/25 12:51 07/04/25 12:51 07/04/25 12:51
Last Documented Vital Signs
Temp Pulse Resp BP Pulse Ox
97.1 F 105 12 157/94 100
07/04/25 19:26 07/04/25 19:26 07/04/25 19:26 07/04/25 19:26 07/04/25 19:26
Procedures
Cardioversion
Indication:: Afib
Performed by:: Sarai Garrett DO
Synchronized?: Yes
Energy Used: 200 joules
Number of attempts: 1
Successful?: Yes
Complications: none
ASA Risk Score: Class II
Any reaction or bad outcome to prior sedation/anesthesia?: No history of a reaction
Sedation level to be attained: moderate
Chart and allergies reviewed: Yes
Patient reassessed prior to sedation: Yes
Time out completed at (validating right patient & procedure): 19:25
History of difficult intubation: No
Airway free of obstruction: Yes
Patient has a gag reflex: Yes
Patient is able to open mouth: Yes
Patient has no dentures: Yes
Patient has no loose teeth: Yes
Medication administered by Provider during Moderate Sedation: IV Propofol (mg)
Total dose administered: 50
Time drug administered: 19:26
Start Time: 19:26
Stop Time: 19:37
MDM/Problems Addressed
MDM/Problems Addressed:
75-year-old female with history of atrial fibrillation on anticoagulation presenting to the emergency department for symptomatic A-fib. Vital signs on arrival are significant for mild hypertension.
On exam, patient is resting comfortably, no acute distress, no respiratory distress. EKG confirms atrial fibrillation. Patient however notes that she is uncomfortable with some dyspnea and palpitations. Patient prior history of cardioversions in
the past as well as ablations. She is requesting cardioversion. She denies any missed dosages of her anticoagulation. On review of EMR, successful cardioversions in the past. Screening laboratory analysis obtained, unremarkable. Will proceed
with cardioversion, no present contraindications.
19:35 - Successful cardioversion. Please see procedure note. Plan for discharge with outpatient cardiology follow-up. Patient has an appointment on Friday. Patient has a ride home. Return precautions discussed with patient verbalized
understanding
*Pulse Oximetry
SaO2: 99
Oxygen Mode of Delivery: Room air
Patient hypoxic: no
*EKG
Interpreted by ED Provider?: Yes
EKG Intrepretation Date: 07/04/25
EKG Intrepretation Time: 19:22
Interpretation: normal
Comparison EKG: no changes (06/03/25)
Heart Rate: 99
Rate: normal
Rhythm: a-fib
Bonnie: left axis deviation
Interval: normal interval
Ischemia: non-specific ST changes
*Critical Care Note
Total Time (30-74mins, 75-104mins- exclusive of procedures): Not Applicable
ED Attending Note
-
Portions of this chart may have been created with voice recognition software.� Occasional wrong word or��sound alike� substitutions may have occurred due to the inherent limitations of voice recognition software.
Discharge Plan
Departure
Prescriptions:
No Action
lisinopril 40 MG tablet
40 mg PO QPM
sotalol 80 MG tablet
80 mg PO BID
Eliquis 5 MG tablet
5 mg PO BID
cholecalciferol (vitamin D3) [Vitamin D3] 50 mcg (2,000 unit) Tablet
50 mcg PO DAILY@1200
magnesium oxide 200 mg magnesium Tablet
200 mg PO DAILY@1200
diltiazem HCl [Cardizem] 120 mg tablet
120 mg PO DAILY Qty: 30 0RF
Referrals:
Sergio Gonzales PA-C [Family Provider, Family Practice]
Interventions
Interventions:
*Risk Screen - Suicide Last Done: 07/04/25 12:51
*General Assessment Last Done: 07/04/25 18:02
*Neglect/Abuse Screening Last Done: 07/04/25 18:02
*ED- Fall Risk Assessment Last Done: 07/04/25 18:02
*ED COVID-19 Vaccine History Last Done: 07/04/25 18:02
ED- Cardiac Assessment Last Done: 07/04/25 18:02
ED- Pulmonary Assessment Last Done: 07/04/25 18:02
Discharge Date and Time
Print Language: CAMEROONIAN
== END 2025-07-04 21:19 | disposition home or self-care (01) ==
LOC: EMR 12:41
PROVIDERS: EMERGENCY PHYSICIAN Student in an Organized Health Care Education/Training Program; FAMILY PHYSICIAN Physician Assistant Medical
DX: I48.91 Unspecified atrial fibrillation (principal); I10 Essential (primary) hypertension; K21.9 Gastro-esophageal reflux disease without esophagitis; H26.9 Unspecified cataract; Z79.01 Long term (current) use of anticoagulants; Z82.49 Family history of ischemic heart disease and other diseases of the circulatory system; Z85.828 Personal history of other malignant neoplasm of skin; Z90.49 Acquired absence of other specified parts of digestive tract
CPT/HCPCS: 99284; 92960; 80053; 85025; 93005

== ENCOUNTER 2025-07-19 13:15 | Emergency (ER) | payer OTHER, SELFPAY ==
[2025-07-19] VITALS (19 sets, daily range): BP systolic 121–146; BP diastolic 56–84
[2025-07-19 13:56] LABS: Hematocrit 47.1 % (37.0-47.0); Hemoglobin 15.8 g/dL (12.0-16.0); Mean Corp Hgb Conc. 33.5 g/dL (33.0-37.0); Mean Corpuscular Volume 87.5 fL (81.0-99.0); Nucleated Red Blood Cells % 0 %; Platelet Count 221 10^3/uL (130-400); Red Cell Dist. Width 12.7 % (11.5-14.5)
[2025-07-19 14:00] LABS: INR 1.06; PT 14.1 Sec (11.4-14.6)
[2025-07-19 14:14] LABS: Troponin I < 0.012 ng/ml
--- NOTE | 2025-07-19 17:22 | ED.GENMED ---
History of Present Illness
General
Chief Complaint: Heart Rate Problem
Source: patient
Exam Limitations: none
Time Seen by Provider: 07/19/25 17:21
History of Present Illness
History of Present Illness:
Patient with heart racing that started this morning. History of atrial fibrillation. Feels similar. Some slight lightheadedness with it. No chest pain no syncope faithful with her Eliquis. Scheduled for her 3rd or 4th ablation at the end of
July. Last cardioverted July 04
Past History
Past History
ED Past Medical History: Arrthythmia (Atrial fibrillation), HTN and Other (Migraines, ovarian cyst, GERD, diverticulosis, cataracts, skin cancer)
ED Past Surgical History: Cholecystectomy and Gynecological (Ovarian cystectomy)
Social History
Tobacco: Non-smoker
Alcohol: Occasional
Drug: None
Personal:
Living: with family
Employment: Retired
Family History
Family History: Other (Mother with A. fib brother with hypertension)
Review of Systems
Review of Systems
All Other Systems: Not applicable
Constitutional: Denies fever
Cardiac: Denies chest pain or syncope
Phy Exam
Physical Exam
Physical Exam:
GENERAL: Alert and oriented in no apparent distress
EYE: Orbits normal.
NECK: Supple
ENT: Pharynx without erythema
CARDIAC: Irregular irregular
LUNGS: Clear breath sounds,normal
ABDOMEN: Soft, without focal tenderness or distention
NEUROLOGICAL: Alert and oriented , grossly non-focal
SKIN: Warm and dry, no rash or lesion, no discoloration, skin intact.
MUSCULOSKELETAL: No edema,no deformity.Good color
PSYCH: Normal and appropriate interaction.
Course
Orders/Labs/Results
Orders:
Orders
07/19/25 13:16
Electrocardiogram (*1) Urgent
Reason for Study: Chest Pain
EKG- Treatment ONCE
07/19/25 13:43
Complete Blood Count/With Diff Urgent
PT/INR [Prothrombin Time] Urgent
Troponin I Urgent
07/19/25 18:46
Propofol [Diprivan] 20 ml .ROUTE .STK-MED
07/19/25 19:02
Electrocardiogram (*1) Urgent
Reason for Study: Atrial Fibrillation
EKG- Treatment ONCE
Abnormal Lab Results
07/19/25
13:43
Hct 47.1 H %
(37.0-47.0)
Lymphocytes % 20.3 L %
(20.5-51.1)
07/19/25 13:43
Vital Signs
Initial and Last Documented VS:
Initial Vital Signs
Temp Pulse Resp BP Pulse Ox
98.3 F 82 16 133/84 98
07/19/25 13:33 07/19/25 13:33 07/19/25 13:33 07/19/25 13:33 07/19/25 13:33
Last Documented Vital Signs
Temp Pulse Resp BP Pulse Ox
98.2 F 65 17 135/69 99
07/19/25 18:56 07/19/25 19:40 07/19/25 19:40 07/19/25 19:40 07/19/25 19:40
Procedures
Cardioversion
Indication:: Afib
Performed by:: Myself
Synchronized?: Yes
Energy Used: 200 joules
Number of attempts: 1
Successful?: Yes
ASA Risk Score: Class II
Any reaction or bad outcome to prior sedation/anesthesia?: No history of a reaction
Sedation level to be attained: moderate
Chart and allergies reviewed: Yes
Patient reassessed prior to sedation: Yes
Time out completed at (validating right patient & procedure): 19:55
History of difficult intubation: No
Airway free of obstruction: Yes
Patient has a gag reflex: Yes
Patient is able to open mouth: Yes
Patient has no dentures: Yes
Patient has no loose teeth: Yes
Medication administered by Provider during Moderate Sedation: IV Propofol (mg)
Total dose administered: 50
Time drug administered: 19:56
Start Time: 19:56
Stop Time: 20:07
MDM/Problems Addressed
Differential Diagnosis Includes:
Patient with relatively rate controlled atrial fibrillation. She prefers ablation. Stable with her DOAC. Symptoms started this morning. Aware risk benefit of cardioversion
*Pulse Oximetry
SaO2: 98
Oxygen Mode of Delivery: Room air
Patient hypoxic: no
*EKG
Interpreted by ED Provider?: Yes
Interpretation: abnormal
Comparison EKG: changes noted
Heart Rate: 97
Rate: normal
Rhythm: a-fib
Arnold: left axis deviation
Interval: normal interval
QRS Pattern: wide non-specific
Ischemia: non-specific ST changes
*Critical Care Note
Total Time (30-74mins, 75-104mins- exclusive of procedures): Not Applicable
Data Reviewed
Review of Other/Old Records Reveals: Labs, Records and Testing
Update Note
Update Note:
Risk-benefit explained to the patient. She would prefer cardioversion. She is aware of the risk of fatal arrhythmia/aspiration/failure to convert etc. Cardiology informed. Patient is faithful with her Eliquis. Symptoms started this morning
Patient tolerated the procedure well. Repeat EKG sinus bradycardia 53. Left axis deviation nonspecific intraventricular delay LVH. Poor R wave progression
On reviewing her record she did not have electrolytes checked today. However 2 previous episodes both this summer she had electrolytes that were all within normal limits. Do not feel repeating at this time is necessary
ED Attending Note
-
Portions of this chart may have been created with voice recognition software.� Occasional wrong word or��sound alike� substitutions may have occurred due to the inherent limitations of voice recognition software.
Discharge Plan
Departure
Patient Disposition: Home (Routine Discharge)
Date of Disposition: 07/19/25
Time of Disposition: 19:57
Patient with high blood pressure during this ER visit?: Yes
Discharge Problem:
Paroxysmal atrial fibrillation
Instructions: Atrial Fibrillation (DC), Cardioversion (DC), MODERATE SEDATION ADULT
Prescriptions:
No Action
lisinopril 40 MG tablet
40 mg PO QPM
sotalol 80 MG tablet
80 mg PO BID
Eliquis 5 MG tablet
5 mg PO BID
cholecalciferol (vitamin D3) [Vitamin D3] 50 mcg (2,000 unit) Tablet
50 mcg PO DAILY@1200
magnesium oxide 200 mg magnesium Tablet
200 mg PO DAILY@1200
diltiazem HCl [Cardizem] 120 mg tablet
120 mg PO DAILY Qty: 30 0RF
Referrals:
Tania Valentino CRNP [Family Provider, Family Practice]
Activity Restrictions/Additional Instructions:
Call cardiology for close follow-up
Interventions
Interventions:
*Risk Screen - Suicide Last Done: 07/19/25 13:33
*General Assessment Last Done: 07/19/25 18:25
*Neglect/Abuse Screening Last Done: 07/19/25 13:33
*ED- Fall Risk Assessment Last Done: 07/19/25 18:25
*ED COVID-19 Vaccine History Last Done: 07/19/25 18:25
ED- Cardiac Assessment Last Done: 07/19/25 18:24
ED- Pulmonary Assessment Last Done: 07/19/25 18:24
Discharge Date and Time
Print Language: MEXICAN
== END 2025-07-19 21:12 | disposition home or self-care (01) ==
LOC: EMR 13:15
PROVIDERS: Emergency Medicine; EMERGENCY PHYSICIAN Emergency Medicine; FAMILY PHYSICIAN Nurse Practitioner
DX: I48.0 Paroxysmal atrial fibrillation (principal); I10 Essential (primary) hypertension; K21.9 Gastro-esophageal reflux disease without esophagitis; Z82.49 Family history of ischemic heart disease and other diseases of the circulatory system; Z85.828 Personal history of other malignant neoplasm of skin; Z90.49 Acquired absence of other specified parts of digestive tract
CPT/HCPCS: 99284; 92960; 84484; 85025; 85610; 93005

== ENCOUNTER 2025-08-15 07:51 | Day surgery (SDC) | payer OTHER, SELFPAY ==
[2025-08-08 10:07] VITALS: BMI 35.7
[2025-08-08 10:57] LABS: Hematocrit 41.0 % (37.0-47.0); Hemoglobin 13.8 g/dL (12.0-16.0); Mean Corp Hgb Conc. 33.7 g/dL (33.0-37.0); Mean Corpuscular Volume 89.7 fL (81.0-99.0); Nucleated Red Blood Cells % 0 %; Platelet Count 201 10^3/uL (130-400); Red Cell Dist. Width 12.7 % (11.5-14.5)
[2025-08-08 11:05] LABS: INR 1.16; PT 15.1 Sec (11.4-14.6)
[2025-08-08 11:28] LABS: ALT (SGPT) 22 U/L (0-35); AST (SGOT) 23 U/L (14-36); Albumin 4.6 g/dl (3.5-5.0); Alkaline Phosphatase 71 U/L (38-126); Blood Urea Nitrogen 14 mg/dl (7-17); Calcium 10.9 mg/dl (8.4-10.2); Carbon Dioxide 29 mmol/L (22-30); Chloride 106 mmol/L (98-107); Estimated Creatinine Clearance 76 ml/min; Glucose 113 mg/dl (70-99); Magnesium 2.3 mg/dl (1.6-2.3); Potassium 4.2 mmol/L (3.5-5.1); Sodium 143 mmol/L (135-145); Total Protein 7.5 g/dl (6.3-8.2); eGFR > 60.00
[2025-08-15] VITALS (17 sets, daily range): BP systolic 107–176; BP diastolic 62–103; BMI 34.8
--- NOTE | 2025-08-15 10:26 | ITS.CL.ABL ---
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
Ablation
Procedure Report:
ELECTROPHYSIOLOGIC STUDY AND POSSIBLE ABLATION
DATE: August 15, 2025
Primary Care: Dr. Sergio Gonzales
Primary stationary engineer refrigeration: Dr Quique Joseph
INDICATION:
Symptomatic Atrial Fibrillation.
Paroxysmal
HISTORY: See H and P.
Symptomatic AF, poorly controlled with attempted medical therapy
Jaimie has symptomatic recurrent atrial fibrillation. She has been treated with antiarrhythmic drug therapy which has included sotalol, However up-titration of dosing has been limited by bradycardia.
She has undergone several prior ablations targeting atrial fibrillation (Cryo Sep 2015, RF in January 2022, Pulse Select PFA in April 2024)
She has again recurred with symptomatic atrial fibrillation and presents for redo mapping and ablation.
HAS-BLED: 1
Age
CHADSVASc: 3
HTN
age
F Gender
PRESENTING RHYTHM: SR
HISTORY: See H and P.
Symptomatic AF, poorly controlled with attempted medical therapy.
ANTIARRHYTHMIC DRUG: Sotalol, 80 mg BID
ANTICOAGULATION: Apixaban
'TIME-OUT': called and confirmed.
SEDATION/ANESTHESIA: provided via the anesthesia department using general anesthesia.
PROCEDURE:
Ultrasound Guidance with real-time visualization of needle insertion and vessel patency performed by pr for femoral venous Vascular Access.
Under real-time US guidance, the needle was advanced with negative pressure into the vein. The needle was seen entering the vessel lumen with a good return of dark red flow, the syringe was removed, non-pulsatile, dark red blood low was noted and
the wire was passed without difficulty, then the needle was removed. US confirmed the wire was in the vein, not going into an artery,
Images were taken and saved for the patient's permanent record. Imaging findings typical femoral venous anatomy. Direct visualization of needle puncture into the femoral vein was observed and recorded.
3 sheaths were inserted into the right femoral vein.
10 Fr, 10Fr, 7 Fr a 10fr sheath was then exchanged for the 16.8 Fr Faradrive deflectable sheath and dilator over a wire.
A decapolar CS catheter was positioned within the CS for mapping and pacing.
The intracardiac ultrasound catheter was positioned in the RA for continuous intracardiac ultrasound imaging.
Heparin bolus and infusion to target ACT at 300 -350 seconds was administered. Transseptal puncture was performed. This entailed advancing a sheath with dilator into the superior vena cava and withdrawing both (monitoring intracardiac ultrasound,
fluoroscopy and tip pressure) with the tip oriented toward the atrial septum. The fossa ovalis was engaged (indicated by sudden displacement of the sheath tip as well as tenting of the fossa seen on intracardiac ultrasound).
The numberFire transseptal system was used. Left atrial catheter position was confirmed by echocardiographic imaging and fluoroscopy followed by RF delivery using the Growlife system resulting in successful LA access with pressure monitoring
demonstrating LA pressure waveforms (LA mean pressure 12 mm Hg). The sheath was advanced over the dilator and positioned in the left atrium.
The Sevilla Grid multipolar mapping catheter was initially positioned through the transseptal sheath for high density mapping.
Cardioversion resulted in sinus rhythm.
Geometry and voltage mapping was performed using the Sevilla multipolar grid catheter. Ensite-X was utilized for three-dimensional electroanatomical mapping.
A 3-D map was created using Ensite-X in Voxel mode. A 3-D reconstructed CT image was compared to the 3-D Navex map to assist in anatomic evaluation, mapping and ablation.
The numberFire PFA catheter and system was used for cardiac ablation. Catheter positioning was guided and confirmed using both I.C.E. and fluoroscopy.
Ablation strategy included PVI as well as mapping for extra PV contributors to atrial fibrillation which would also be targeted if present.
High density electroanatomical three-dimensional mapping demonstrated a common Left PV and individual RSPV and RIPV.
There is evidence of electrical reconnection at the inferior quadrant of the right inferior pulmonary vein.
This was targeted for electrical reisolation with delivery of pulsed electric field energy.
After accomplishing pulmonary venous isolation, mapping identified additional areas likely to be extra PV contributors to atrial fibrillation. These areas demonstrated patchy low voltage as well as complex fractionated electrograms. These areas can
be sites for the formation of rotors which can drive and maintain atrial fibrillation. These areas are known to be significant contributors to initiation and perpetuation of atrial fibrillation.
Additional energy applications/additional ablation sets targeted extra PV contributors to atrial fibrillation.
The posterior wall of the left atrium is isolated from its roof to the mid left atrium.
Additional energy application was applied to
LA inferior floor
The ridge of tissue between the left atrial appendage and the left sided pulmonary veins (Ligament of Florentino )
These areas were ablated using pulsed electric field energy eliminating the extra PV contributors to atrial fibrillation.
Post ablation mapping finds electrical isolation at each of the pulmonary veins, the LA posterior wall and at the additional lines at the Inferior/floor of the LA as well as the Ligament of Marshal rendering the sites no longer able to contribute
to atrial fibrillation.
Of note, during ablation the left atrium atrial fibrillation recurred..
External cardioversion was attempted first at 200 J which failed to convert to sinus rhythm then 360 J which only briefly resulted in sinus rhythm before resumption of atrial fibrillation.
Cardioversion at 360 J was performed again and failed to restore sinus rhythm.
External patch position was altered and external pressure was applied to the anterior patch during cardioversion with 360 J which resulted in sinus rhythm briefly but again atrial fibrillation recurred.
I.C.E. :
Pre-Ablation Post-Ablation
LVEF: 50 % 50 %
WMA: none none
Pericardial effusion: Trace posterior trace posterior
LA Pressure 12
COMPLICATIONS:
None
SUMMARY:
- Mapping and ablation to isolate the PVs resulting in electrical isolation of the pulmonary veins
- Additional AF ablation sets X 2 after PVI [ ] (Inf/floor of the LA posterior wall, Ligament of Florentino) resulting in elimination of the targeted extra PV contributors to atrial fibrillation.
- 3-D Electroanatomical Mapping
- Intracardiac Ultrasound
- Ultrasound guidance for vascular access
Post ablation, I discussed today's findings and results with the patient's friend, Jil.
RECOMMENDATIONS:
- Observe in monitored bed.
- Maintain oral anticoagulation.
-Rhythm control has been very difficult and as an outpatient prior to this mapping and ablation procedure today, there was discussion regarding moving towards discontinuation of sotalol and loading with dofetilide. There is also discussion that
given her bradycardia it is possible she may require permanent pacing at some point.
Discontinue sotalol with washout this week and then plan for admission for dofetilide loading as an outpatient next week. With dofetilide loading she can then undergo cardioversion attempt.
- Office visit with Dr. Joseph is scheduled for September 27, 2025
Copy to:
Primary Care: Dr. Sergio Gonzales
Primary stationary engineer refrigeration: Dr Quique Joseph
[2025-08-15 11:34] LABS: ACT-LR - POC 363 Seconds (116-155)
[2025-08-15 12:02] LABS: ACT-LR - POC 361 Seconds (116-155)
--- NOTE | 2025-08-15 14:14 | PTCARENOTE ---
Received into room 2245 from lab manager. AOx3. VSS. Afib on telemetry, HR 90-110s. Right groin dressing clean, dry, intact. +2 peripheral pulses throughout. Discussed plan of care, patient verbalizes understanding. Left w/ call siddiqui in reach.
--- NOTE | 2025-08-15 16:25 | CM ---
spoke to pt in room, she is prev indep, lives alone in a 1 story home with 3 steps to enter. she denies ay dme's or dc planning needs. plan is for dc to home when medically stable.
--- NOTE | 2025-08-15 17:28 | PTCARENOTE ---
Bedrest complete. Patient wanting to ambulate to bathroom, required min assist x1. During activity, HR 130-140s in afib, pt reports palpitations and mild SOB. After activity, while RN in patient's room, rhythm on telemetry appeared regular, base HR
now in 80s. EKG obtained confirming NSR. Dressing to R groin remains clean, dry, intact. Now sitting in chair, ordering dinner. Left w/ call siddiqui in reach.
[2025-08-15] MEDS: ELIQUIS 5 MG PO (21:22)
[2025-08-15] MEDS: ZESTRIL 40 MG PO (21:22)
--- NOTE | 2025-08-15 23:54 | PTCARENOTE ---
Received pt at change of shift OOB in chair. SB-SR w/ PVC's on tele, HR 50's-70's. pt denies any CP or SOB at this time. Right groin site intact, dime-sized amount of drainage noted and marked on dressing. No hematoma noted at this time. Ed Hilda,
CVPA made aware. pt w/ own CPAP on. Encouraged pt to call RN w/ any questions/concerns. Call siddiqui within reach.
[2025-08-16 03:16] VITALS: BP 145/75
[2025-08-16 03:42] LABS: Hematocrit 41.0 % (37.0-47.0); Hemoglobin 14.0 g/dL (12.0-16.0); Mean Corp Hgb Conc. 34.1 g/dL (33.0-37.0); Mean Corpuscular Volume 88.2 fL (81.0-99.0); Platelet Count 220 10^3/uL (130-400); Red Cell Dist. Width 13.0 % (11.5-14.5)
[2025-08-16 04:09] LABS: Blood Urea Nitrogen 18 mg/dl (7-17); Calcium 9.9 mg/dl (8.4-10.2); Carbon Dioxide 25 mmol/L (22-30); Chloride 108 mmol/L (98-107); Estimated Creatinine Clearance 76 ml/min; Glucose 127 mg/dl (70-99); Magnesium 2.0 mg/dl (1.6-2.3); Potassium 3.9 mmol/L (3.5-5.1); Sodium 141 mmol/L (135-145); eGFR > 60.00
[2025-08-16 07:49] VITALS: BP 119/53
--- NOTE | 2025-08-16 07:56 | W.PN.CARDCBS ---
Addendum entered and electronically signed by Dandre Aguilar MD 08/16/25 10:22:
Patient seen and examined
Patient noted to have a focal spot change in her vision without apparent field cut
Otherwise nonfocal neurologically with equal strength sensation and sensorium
Agree with ARBOR PRESS OPERATOR note and assessment
Agree with ARBOR PRESS OPERATOR plan
Exam:
Nonfocal neurologically
Alert and oriented x 3 x 3
Telemetry with sinus rhythm
Cor regular
CPAP in place when examined
EKGs reviewed
Remainder as ARBOR PRESS OPERATOR note assessment
IMPRESSION:
Recurrent symptomatic AFib
s/p PFA, 08/15/25
Prior PVI x3 (09/2015, 01/2022, PFA-04/2024)
HTN
HLD
BABATUNDE/CPAP
PVCs
GERD/Gastric ulcer
mild
chronic LE edema
PLAN:
75 y/o, recurrent symptomatic AFib, 3 prior ablations since 2014 most recently 04/2024 with PFA. [id number]=4, maintained on eliquis.
Intolerant of increased doses sotalol due to bradycardia, and refusing amiodarone therapy. Plan is to bring back for inpatient Tikosyn loading after sotalol washout next week.
s/p redo PFA- multiple cardioversions during procedure- now in NSR/SB 50-60s
groin site stable
oob ambulating
resume eliquis last evening, discontinue sotalol
plan for inpatient tikosyn load next week after sotalol washout
if continued AFib after 4th ablation and AAD, could consider AVJ ablation with PPM implant.
complained of headache/migraine last evening with some visual floaters, not completely resolved but neuro exam is normal, without deficits. I suspect these are related to transseptal puncture and should get better over 5 to [address] Joseph as scheduled
home today
Original Note:
Today's Communication / Plan
-
continue sotalol washout
inpatient tikosyn load next week
home today
Impression / Plan
-
PCP: RADHA Rosenthal
CDY: Miguel Joseph MD
IMPRESSION:
Recurrent symptomatic AFib
s/p PFA, 08/15/25
Prior PVI x3 (09/2015, 01/2022, PFA-04/2024)
HTN
HLD
BABATUNDE/CPAP
PVCs
GERD/Gastric ulcer
mild
chronic LE edema
PLAN:
75 y/o, recurrent symptomatic AFib, 3 prior ablations since 2014 most recently 04/2024 with PFA. [id number]=1, maintained on eliquis.
Intolerant of increased doses sotalol due to bradycardia, and refusing amiodarone therapy.
s/p redo PFA- multiple cardioversions during procedure- now in NSR/SB 50-60s
groin site stable
oob ambulating
resume eliquis last evening, discontinue sotalol
plan for inpatient tikosyn load next week after sotalol washout
if continued AFib after 4th ablation and AAD, could consider AVJ ablation with PPM implant.
complained of headache/migraine last evening with some visual floaters, not completely resolved but neuro exam is normal, without deficits.
followup with Dr. Joseph as scheduled
home today
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
Subjective
Date of Service: August 16, 2025
Denies cp/palps/dyspnea
oob ambulating
groin site without pain
migraine last evening with visual floaters, somewhat improved this morning
Objective
Labs:
08/16/25 03:33
08/16/25 03:33
Labs
Hgb 14.0 g/dL (12.0-16.0) 08/16/25 03:33
Hct 41.0 % (37.0-47.0) 08/16/25 03:33
Plt Count 220 10^3/uL (130-400) 08/16/25 03:33
PT 15.1 Sec (11.4-14.6) H 08/08/25 10:29
INR 1.16 08/08/25 10:29
Sodium 141 mmol/L (135-145) 08/16/25 03:33
Potassium 3.9 mmol/L (3.5-5.1) 08/16/25 03:33
BUN 18 mg/dl (7-17) H 08/16/25 03:33
Creatinine 0.7 mg/dL (0.6-1.0) 08/16/25 03:33
Glucose 127 mg/dl (70-99) H 08/16/25 03:33
Vital Signs and I&O:
Vital Signs
Temp Pulse Resp BP Pulse Ox
98.3 F 56 18 145/75 98
08/16/25 07:48 08/16/25 07:48 08/16/25 07:48 08/16/25 03:16 08/16/25 07:48
Vital Signs
Temp Pulse Resp BP Pulse Ox
98.3 F 56 18 145/75 98
08/16/25 07:48 08/16/25 07:48 08/16/25 07:48 08/16/25 03:16 08/16/25 07:48
Intake & Output
08/14/25 08/15/25 08/16/25 08/17/25
06:59 06:59 06:59 06:59
Intake Total 480 / 480
Output Total 265 / 265
Balance 215 / 215
Physical Exam
Physical Exam
AAOx3, MAEE 5/5
RRR S1 S2 no murmurs
CTA bilat, non labored
soft abd, + bs
right groin site without ht/bleeding, non tender
bilat extremities w/palpable distal pulses, no edema
[2025-08-16] MEDS: ORETIC 12.5 MG PO (08:28)
[2025-08-16] MEDS: NORVASC 10 MG PO (08:28)
[2025-08-16] MEDS: ELIQUIS 5 MG PO (08:28)
--- NOTE | 2025-08-16 09:54 | W.DS.TRANS ---
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
-
Discharge Instructions:
Discharge Diagnosis/Procedures AFib, s/p ablation
Diet Low Cholesterol
Driving Restrictions No driving for 24 hours
Instructions:
Stand-Alone Forms: DC Instructions- Cath/EP Lab
Changes to Home Medications: Yes
Discharge Medications:
DC Medications w/original date entered in [facility]
lisinopril 40 mg tablet 40 mg PO HS Blood pressure 10/03/15
apixaban 5 mg tablet (Eliquis) 5 mg PO BID Blood clot prevention/tx 07/08/20
cholecalciferol (vitamin D3) 50 mcg (2,000 unit) tablet (Vitamin D3) 50 mcg PO DAILY@1200 Supplement 04/01/24
Probiotic 1 cap PO DAILY 08/03/25
amlodipine 10 mg tablet 10 mg PO DAILY 08/03/25
hydrochlorothiazide 12.5 mg tablet 12.5 mg PO DAILY 08/03/25
magnesium 1 tab PO DAILY 08/03/25
omeprazole 20 mg capsule,delayed release 20 mg PO DAILYPRN PRN gerd 08/03/25
polyethylene glycol 400 0.25 % eye drops (Blink Tears) 1 drp ophthalmic (eye) PRN PRN dry eyes 08/03/25
Home Medication Changes
STOP: sotalol
Pending Results: No
[2025-08-16 11:11] VITALS: BP 103/52
--- NOTE | 2025-08-16 11:51 | PTCARENOTE ---
Patient received from night warehouse manager RN; AAOx3, responds spontaneously to RN and follows commands; Patient complaining of right eye 'floaters' that change color with closing eyelids - RADHA Turner notified and aware at bedside; VSS; SB with SR on
monitor; +1 B/L LE edema; +2 DP and radial pulses; Lung sounds clear; Hypoactive BS; Patient urinating clear, yellow urine in bathroom; Right groin drainage marked on 4x4 with tegaderm at change of shift - removed with RADHA Turner at bedside and
now VINI; PIVx1 - #20 RAC; See nursing documentation for further information
--- NOTE | 2025-08-16 12:09 | PTCARENOTE ---
Patient being discharged to home; Patient states full understanding of discharge instructions and has no further questions at this time; PIVx1 and telemetry pack removed; Patient belongings with patient in room; VSS; Awaiting patient's family member
for transport to home
== END 2025-08-16 12:33 | disposition home or self-care (01) ==
LOC: CATH 07:51
PROVIDERS: Nurse Practitioner; ATTENDING PHYSICIAN Internal Medicine Cardiovascular Disease; FAMILY PHYSICIAN Physician Assistant Medical; OTHER PHYSICIAN Internal Medicine Cardiovascular Disease
DX: I48.0 Paroxysmal atrial fibrillation (principal); I49.3 Ventricular premature depolarization; I35.0 Nonrheumatic aortic (valve) stenosis; Z79.01 Long term (current) use of anticoagulants; R00.1 Bradycardia, unspecified; G43.909 Migraine, unspecified, not intractable, without status migrainosus; I10 Essential (primary) hypertension
CPT/HCPCS: 36415; 80048; 80053; 83735; 85025; 85027; 85347; 85610; 86850; 86900; 86901; 93005; 93656; 93657; C1730; C1732; C1733; C1766; C1769; C1892; C1894

== ENCOUNTER 2025-08-22 07:59 | Inpatient (IN) | payer OTHER, SELFPAY ==
[2025-08-22 08:31] VITALS: BP 156/64
--- NOTE | 2025-08-22 08:59 | W.PN.CARDCBS ---
Addendum entered and electronically signed by Quique Joseph MD 08/22/25 11:41:
I saw and examined the patient.
The IMPOSER or PA's note was reviewed and I agree with the note.
Comment: General: Well developed, well nourished in NAD.
Neck: Supple, no JVD, HJR, carotids +2 B/L, no bruits bilaterally.
Heart: Non displaced PMI, RRR, no murmurs, No S3, S4, no rubs.
Lungs: Clear to auscultation bilaterally, no wheeze, rhonchi, rubs bilaterally,
normal expiratory phase.
Abdomen: Normal bowel sounds, soft, non-tender, non-distended.
Extremities: No clubbing, cyanosis or edema bilaterally.
Neuro: Grossly nonfocal, awake, alert and oriented x3.
Jaimie has had symptomatic A-fib with 4 different ablations. She has failed outpatient sotalol. She is admitted for Tikosyn loading. No chest pain short breath or palpitations. In sinus rhythm at present.
Original Note:
Today's Communication / Plan
-
Replete potassium
HCTZ has been discontinued (last dose 08/22 in am)
Start Tikosyn 500 mcg twice daily 08/23/2025 in am
Maintain Eliquis 5 mg twice a day
Monitor on telemetry
Impression / Plan
-
Please refer to Office visit consultation from 08/01/2025 as admission H & P
PCP: RADHA Rosenthal
CDY: Miguel Joseph MD
Cover Creaser: Dr. Aguilar
IMPRESSION:
Elective admission 08/22/2025 for initiation of Tikosyn
Recurrent symptomatic AFib refractory with failed medical management on sotalol and multiple ablations as noted above
s/p PFA, 08/15/25
Prior PVI x3 (09/2015, 01/2022, PFA-04/2024)
HTN
HLD
BABATUNDE/CPAP
PVCs
GERD/Gastric ulcer
mild
chronic LE edema
Echo 12/09/2023: EF 54%. Normal regional wall motion. Mild MR.
PLAN:
-75 y/o, recurrent symptomatic AFib, 3 prior ablations since 2014 most recently 08/15/2025 with PFA multiple cardioversions during procedure. Sotalol discontinued at time of procedure. Now here for Elective admission for initiation of Tikosyn
08/22/2025.
-Patient has been off sotalol since 08/15/2025. Unfortunately she has been maintained on hydrochlorothiazide 12.5 mg daily. Last dose morning of 08/22/2025. Given potential interaction with Tikosyn and HCTZ we will delay initiation of Tikosyn for
24 hours. First dose of Tikosyn 500 mcg twice daily will be 08/23/2025 in a.m.
-Stable BUN/creatinine 15/0.7. Creat clearance estimated to be 100 mL/min based on age of 75, weight of 202, sex of female and creatinine of 0.7
-[id number]=6, maintained on eliquis. She has been compliant with Eliquis, will continue
-Serial EKGs per protocol to monitor QTc
EKG on admission (prior to Tikosyn load) demonstrates sinus rhythm with left bundle branch block QTc of 461 ms
- Labs reviewed. Potassium 3.6, will replete to keep potassium greater than 4. Magnesium 2.0.
- Check daily BMPs
-Monitor on telemetry
-Patient takes lisinopril and amlodipine for hypertension. Continue
-Patient was on hydrochlorothiazide. This has been discontinued as noted above. Discussed patient should not resume HCTZ while on Tikosyn.
-If recurrent AFib after 4th ablation and AAD, could consider AVJ ablation with PPM implant.
Admission HPI 08/22/2025:
Patient is a 75-year-old female with recurrent symptomatic atrial fibrillation, poorly controlled with attempts of medical therapy including three prior ablations as well as sotalol therapy. She has a [id number] score of 4 and has been maintained
on Eliquis. She previously was on low-dose sotalol and intolerant of increased doses due to bradycardia. She refuses amiodarone therapy. On 08/15/2025 she underwent redo pulse field ablation. Procedure was complex with multiple cardioversions during
the procedure. She did spontaneously convert to sinus rhythm prior to discharge. Sotalol was discontinued with washout and patient is now being admitted for [facility] admission. Patient was on hydrochlorothiazide prior to admission. This has been
discontinued
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
Subjective
Date of Service: August 22, 2025
Patient seen and examined. Patient resting comfortably in bed.
Objective
Vital Signs and I&O:
Vital Signs
Temp Pulse Resp Pulse Ox
98.1 F 68 17 94
08/22/25 08:25 08/22/25 08:25 08/22/25 08:25 08/22/25 08:25
Vital Signs
Temp Pulse Resp Pulse Ox
98.1 F 68 17 94
08/22/25 08:25 08/22/25 08:25 08/22/25 08:25 08/22/25 08:25
Physical Exam
Physical Exam
GEN: No distress, awake, Ox3
HEENT: supple, anicteric, mmm
LUNGS: CTA, no wheezes/rales
CV: Reg, S1/S2, no murmur, no rub or gallop
ABD: soft, BS+, NT/ND
EXT: No edema, clubbing or cyanosis
NEURO: Gross non-focal
SKIN: No rash, warm, dry, pink
[2025-08-22 09:21] LABS: Hematocrit 38.9 % (37.0-47.0); Hemoglobin 12.9 g/dL (12.0-16.0); Mean Corp Hgb Conc. 33.2 g/dL (33.0-37.0); Mean Corpuscular Volume 91.1 fL (81.0-99.0); Platelet Count 166 10^3/uL (130-400); Red Cell Dist. Width 13.2 % (11.5-14.5)
[2025-08-22 09:47] LABS: ALT (SGPT) 20 U/L (0-35); AST (SGOT) 21 U/L (14-36); Albumin 4.3 g/dl (3.5-5.0); Alkaline Phosphatase 67 U/L (38-126); Blood Urea Nitrogen 15 mg/dl (7-17); Calcium 10.4 mg/dl (8.4-10.2); Carbon Dioxide 28 mmol/L (22-30); Chloride 108 mmol/L (98-107); Estimated Creatinine Clearance 76 ml/min; Glucose 120 mg/dl (70-99); Magnesium 2.0 mg/dl (1.6-2.3); Potassium 3.6 mmol/L (3.5-5.1); Sodium 143 mmol/L (135-145); Total Protein 7.1 g/dl (6.3-8.2); eGFR > 60.00
[2025-08-22 11:15] VITALS: BP 131/60
--- NOTE | 2025-08-22 12:06 | PTCARENOTE ---
assumed care of pt. pt oriented to unit and explained plan of care. pt verbalized understanding. pt ambulated into BR and tolerated well. pt resting in bed comfortably. pt is sr on the monitor, hr in the 80s, vss. pt offers no complaints at this
time. call siddiqui within reach.
--- NOTE | 2025-08-22 12:33 | CM ---
spoke to pt in room, she is prev indep, lives alone in a 1 story home with 3 steps to enter. she denies any dc planning needs or dme's. plan is for dc to home when medically stable.
[2025-08-22] MEDS: VITAMIN D3 (cholecalciferol) 50 MCG PO (13:35)
[2025-08-22] MEDS: MAGNESIUM OXIDE 400 MG PO (13:35)
[2025-08-22] MEDS: KCL 40 MEQ PO (13:35)
--- NOTE | 2025-08-22 14:49 | W.CARD.TIKOS ---
Initiate Tikosyn
-
I verify that the patient has not taken any verapamil (Isoptin/Calan), ketoconazole (Nizoral), cimetidine (Tagamet), trimethoprim (Trimpex), trimethoprim/sulfamethoxazole (Bactrim), megesterol (Megace), prochlorperazine (Compazine),
hydrochlorothiazide (HCTZ), dolutegravir (Tivicay) or any Class I or Class III anti-arrhythmic within the last three days
AND
I verify that the patient has not taken amiodarone within the last THREE months, or that the patient's amiodarone plasma concentration is <0.3 mcg/mL.
Creatinine 0.7 mg/dL (0.6-1.0) 08/22/25 09:02
Estimated Creat Clear 76 ml/min 08/22/25 09:02
Does patient have a Ventricular Conduction Abnormality: No
I have assessed the baseline QTc interval (using QT for heart rate less than 60 bpm) and deemed the patient is appropriate for Dofetilide therapy. I understand that Tikosyn is contraindicated if the QTc is >440msec (500msec in patients with
ventricular conduction abnormalities).
Baseline QTc (in msec): 461
QTc interval is greater than 440msec without conduction abnormality OR greater than 500msec with a conduction abnormality, but acceptable to proceed per Cardiology attending.
Reason for Administration with Prolonged QTc: Bundle Branch Block
Ordering Physician: Quique Joseph
[2025-08-22 15:18] VITALS: BP 126/49
[2025-08-22 18:18] VITALS: BP 145/57
--- NOTE | 2025-08-22 19:14 | PTCARENOTE ---
pt sr on the monitor, hr in the 80s, vss. pt offers no complaints at this time. pt ambulating through the verdin and tolerating well. pt educated on plan of care and pt verbalized understanding. call siddiqui within reach.
[2025-08-22] MEDS: ELIQUIS 5 MG PO (20:02)
[2025-08-22] MEDS: ZESTRIL 40 MG PO (20:03)
[2025-08-22 22:17] VITALS: BP 138/65
[2025-08-23] VITALS (7 sets, daily range): BP systolic 127–160; BP diastolic 56–77; BMI 34.2
[2025-08-23 05:07] LABS: Blood Urea Nitrogen 16 mg/dl (7-17); Calcium 10.1 mg/dl (8.4-10.2); Carbon Dioxide 26 mmol/L (22-30); Chloride 110 mmol/L (98-107); Estimated Creatinine Clearance 76 ml/min; Glucose 103 mg/dl (70-99); Potassium 4.1 mmol/L (3.5-5.1); Sodium 142 mmol/L (135-145); eGFR > 60.00
--- NOTE | 2025-08-23 05:43 | PTCARENOTE ---
Pt NSR on monitor, VSS. Pt denies pain, SOb or any discomfort. Pt independent in the room. Call siddiqui within reach
[2025-08-23] MEDS: TIKOSYN 500 MCG PO ×2 (08:00→19:58)
[2025-08-23] MEDS: NORVASC 10 MG PO (08:11)
[2025-08-23] MEDS: MAGNESIUM OXIDE 400 MG PO (08:12)
[2025-08-23] MEDS: ELIQUIS 5 MG PO ×2 (08:12→19:57)
[2025-08-23] MEDS: VITAMIN D3 (cholecalciferol) 50 MCG PO (08:12)
--- NOTE | 2025-08-23 09:33 | W.PN.CARDCBS ---
Addendum entered and electronically signed by Quique Joseph MD 08/23/25 10:12:
I saw and examined the patient.
The PERFORMING ARTS ROAD MANAGER or PA's note was reviewed and I agree with the note.
Comment: General: Well developed, well nourished in NAD.
Neck: Supple, no JVD, HJR, carotids +2 B/L, no bruits bilaterally.
Heart: Non displaced PMI, RRR, no murmurs, No S3, S4, no rubs.
Lungs: Clear to auscultation bilaterally, no wheeze, rhonchi, rubs bilaterally,
normal expiratory phase.
Extremities: No clubbing, cyanosis or edema bilaterally.
Neuro: Grossly nonfocal, awake, alert and oriented x3.
She is to start Tikosyn HCTZ has been discontinued. Will follow QT interval. She will get 5 doses and be ready for discharge on 10/10 AM
Original Note:
Today's Communication / Plan
-
Initiate Tikosyn
Follow QTc by EKG
Continue Eliquis
Follow blood pressure trends and lower extremity edema. May need to adjust antihypertensives as now off HCTZ
Impression / Plan
-
Please refer to Office visit consultation from 08/01/2025 as admission H & P
PCP: RADHA Rosenthal
CDY: Miguel Joseph MD
Clinical Reimbursement Specialist: Dr. Aguilar
IMPRESSION:
Elective admission 08/22/2025 for initiation of Tikosyn
Recurrent symptomatic AFib refractory with failed medical management on sotalol and multiple ablations as noted above
s/p PFA, 08/15/25
Prior PVI x3 (09/2015, 01/2022, PFA-04/2024)
HTN
HLD
BABATUNDE/CPAP
PVCs
Chronic LBBB
GERD/Gastric ulcer
mild
chronic LE edema
Echo 12/09/2023: EF 54%. Normal regional wall motion. Mild MR.
PLAN:
-75 y/o, recurrent symptomatic AFib, 3 prior ablations since 2014 most recently 08/15/2025 with PFA multiple cardioversions during procedure. Sotalol discontinued at time of procedure 08/15/25. Now here for elective admission for initiation of
Tikosyn 08/22/2025.
-OP HCTZ stopped 08/22 and should not be resumed as tikosyn started 08/23 post 24 hour washout.
-follow QTc by EKG. she has chronic LBBB in addition
-continue eliquis
-in SR on review of tele
-continue OP lisinopril, norvasc. She reports she was started on HCTZ as she had lower extremity swelling in the setting of being on Norvasc. If needed, could consider addition of Lasix, or could consider transitioning Norvasc to different
antihypertensive that would not cause side effect of lower extremity swelling
-If recurrent AFib after 4th ablation and AAD, could consider AVJ ablation with PPM implant.
-plan for DC 08/25
Admission HPI 08/22/2025:
Patient is a 75-year-old female with recurrent symptomatic atrial fibrillation, poorly controlled with attempts of medical therapy including three prior ablations as well as sotalol therapy. She has a TSO7ON5-OAOu score of 4 and has been maintained
on Eliquis. She previously was on low-dose sotalol and intolerant of increased doses due to bradycardia. She refuses amiodarone therapy. On 08/15/2025 she underwent redo pulse field ablation. Procedure was complex with multiple cardioversions during
the procedure. She did spontaneously convert to sinus rhythm prior to discharge. Sotalol was discontinued with washout and patient is now being admitted for Tikosyn admission. Patient was on hydrochlorothiazide prior to admission. This has been
discontinued
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
Subjective
Date of Service: August 23, 2025
Denies chest pain, shortness of breath, palpitations
Objective
Labs:
08/22/25 09:02
08/23/25 04:13
Labs
Hgb 12.9 g/dL (12.0-16.0) 08/22/25 09:02
Hct 38.9 % (37.0-47.0) 08/22/25 09:02
Plt Count 166 10^3/uL (130-400) D 08/22/25 09:02
Sodium 142 mmol/L (135-145) 08/23/25 04:13
Potassium 4.1 mmol/L (3.5-5.1) 08/23/25 04:13
BUN 16 mg/dl (7-17) 08/23/25 04:13
Creatinine 0.7 mg/dL (0.6-1.0) 08/23/25 04:13
Glucose 103 mg/dl (70-99) H 08/23/25 04:13
Vital Signs and I&O:
Vital Signs
Temp Pulse Resp BP Pulse Ox
98.0 F 61 18 133/63 99
08/23/25 07:35 08/23/25 08:45 08/23/25 07:35 08/23/25 08:11 08/23/25 08:00
Vital Signs
Temp Pulse Resp BP Pulse Ox
98.0 F 61 18 133/63 99
08/23/25 07:35 08/23/25 08:45 08/23/25 07:35 08/23/25 08:11 08/23/25 08:00
Intake & Output
08/21/25 08/22/25 08/23/25 08/24/25
07:59 07:59 07:59 07:59
Intake Total 830 / 830
Balance 830 / 830
Physical Exam
Physical Exam
GEN: No distress, awake, alert, oriented x3. Sitting on couch
HEENT: supple, anicteric, mmm, EOMI
LUNGS: CTA bilaterally, no wheezes/rales
CV: Reg, S1/S2, no murmur
ABD: soft, BS+, NT/ND
EXT: No cyanosis, clubbing. Trace edema of bilateral lower extremity
NEURO: Gross non-focal
SKIN: Warm, pink, dry. No rash
--- NOTE | 2025-08-23 12:52 | CM ---
priced dofetilide- 500 mcg at [facility]- her copay is $3.58/month- it is in stock.
--- NOTE | 2025-08-23 14:34 | PTCARENOTE ---
Pt received first dose of Tikosyn, QTC level 2 hours post 475. SB with BBB, AAO3. Ambulatory in hallways
[2025-08-23] MEDS: ZESTRIL 40 MG PO (19:58)
--- NOTE | 2025-08-23 21:15 | PTCARENOTE ---
Rec'd pt at change of shift. Pt AAO*3, VSS, and TELE monitor SR with BBB and prolonged qt. PT also in Afib while rate controlled at points in time. PT denies any pain or discomfort. Currently resting with call siddiqui in reach. See MAr and
flowchart for full pt care and assessment. Plan of care ongoing.
[2025-08-24] VITALS (7 sets, daily range): BP systolic 126–157; BP diastolic 53–69; BMI 34.4
[2025-08-24 05:32] LABS: Blood Urea Nitrogen 20 mg/dl (7-17); Calcium 9.6 mg/dl (8.4-10.2); Carbon Dioxide 25 mmol/L (22-30); Chloride 111 mmol/L (98-107); Estimated Creatinine Clearance 76 ml/min; Glucose 96 mg/dl (70-99); Potassium 4.0 mmol/L (3.5-5.1); Sodium 141 mmol/L (135-145); eGFR > 60.00
[2025-08-24] MEDS: MAGNESIUM OXIDE 400 MG PO (08:54)
[2025-08-24] MEDS: ELIQUIS 5 MG PO ×2 (08:54→19:58)
[2025-08-24] MEDS: TIKOSYN 500 MCG PO ×2 (08:54→19:59)
[2025-08-24] MEDS: NORVASC 10 MG PO (08:54)
[2025-08-24] MEDS: VITAMIN D3 (cholecalciferol) 50 MCG PO (08:54)
--- NOTE | 2025-08-24 09:18 | W.PN.CARDCBS ---
Addendum entered and electronically signed by John Montilla DO 08/24/25 09:27:
I saw and examined the patient.
The Nanosystems Engineer's note was reviewed and I agree with the note.
Comment:
Plan:
Remains sinus with stable HR.
Cont Tikosyn load.
QTc remains stable.
Cont Eliquis for stroke prophylaxis
She has intermittent dyspnea which could be atelectasis, and she appears euvolemic with stable wt and without edema
Cont to monitor as she is off HCTZ. Could consider lasix if needed but will hold off for now.
Check ambulatory pulse ox
Likely d/c tomorrow 08/25
Original Note:
Today's Communication / Plan
-
continue tikosyn
QTc stable
continue eliquis
in SR
low threshold to start lasix 20mg daily
Impression / Plan
-
Please refer to Office visit consultation from 08/01/2025 as admission H & P
PCP: RADHA Rosenthal
CDY: Miguel Joseph MD
Children'S Author: Dr. Aguilar
IMPRESSION:
Elective admission 08/22/2025 for initiation of Tikosyn
Recurrent symptomatic AFib refractory with failed medical management on sotalol and multiple ablations as noted above
s/p PFA, 08/15/25
Prior PVI x3 (09/2015, 01/2022, PFA-04/2024)
HTN
HLD
BABATUNDE/CPAP
PVCs
Chronic LBBB
GERD/Gastric ulcer
mild
chronic LE edema
Echo 12/09/2023: EF 54%. Normal regional wall motion. Mild MR.
PLAN:
-75 y/o, recurrent symptomatic AFib, 3 prior ablations since 2014 most recently 08/15/2025 with PFA multiple cardioversions during procedure. Sotalol discontinued at time of procedure 08/15/25. Now here for elective admission for initiation of
Tikosyn 08/22/2025.
-OP HCTZ stopped 08/22 and should not be resumed as tikosyn started 08/23 post 24 hour washout.
-follow QTc, stable by EKG 10 PM. she has chronic LBBB in addition
-continue eliquis
-in SR on review of tele
-continue OP lisinopril, norvasc. She reports she was started on HCTZ as she had lower extremity swelling in the setting of being on Norvasc. She does report some SOB at times overnight. Does not appear grossly volume overloaded on exam. will
check amb pulse ox. low threshold to add Lasix, or could consider transitioning Norvasc to different antihypertensive that would not cause side effect of lower extremity swelling
-If recurrent AFib after 4th ablation and AAD, could consider AVJ ablation with PPM implant.
-plan for DC 08/25
-d/w nursing
Admission HPI 08/22/2025:
Patient is a 75-year-old female with recurrent symptomatic atrial fibrillation, poorly controlled with attempts of medical therapy including three prior ablations as well as sotalol therapy. She has a TII2AI0-LZAk score of 4 and has been maintained
on Eliquis. She previously was on low-dose sotalol and intolerant of increased doses due to bradycardia. She refuses amiodarone therapy. On 08/15/2025 she underwent redo pulse field ablation. Procedure was complex with multiple cardioversions during
the procedure. She did spontaneously convert to sinus rhythm prior to discharge. Sotalol was discontinued with washout and patient is now being admitted for Tikosyn admission. Patient was on hydrochlorothiazide prior to admission. This has been
discontinued
Progress Note - Log Rider
Subjective
Date of Service: August 24, 2025
reports some SOB at times overnight
Objective
Labs:
08/22/25 09:02
08/24/25 04:17
Labs
Hgb 12.9 g/dL (12.0-16.0) 08/22/25 09:02
Hct 38.9 % (37.0-47.0) 08/22/25 09:02
Plt Count 166 10^3/uL (130-400) D 08/22/25 09:02
Sodium 141 mmol/L (135-145) 08/24/25 04:17
Potassium 4.0 mmol/L (3.5-5.1) 08/24/25 04:17
BUN 20 mg/dl (7-17) H 08/24/25 04:17
Creatinine 0.7 mg/dL (0.6-1.0) 08/24/25 04:17
Glucose 96 mg/dl (70-99) 08/24/25 04:17
Vital Signs and I&O:
Vital Signs
Temp Pulse Resp BP Pulse Ox
98.1 F 51 18 135/67 97
08/24/25 07:06 08/24/25 08:00 08/24/25 07:06 08/24/25 07:07 08/24/25 07:07
Vital Signs
Temp Pulse Resp BP Pulse Ox
98.1 F 51 18 135/67 97
08/24/25 07:06 08/24/25 08:00 08/24/25 07:06 08/24/25 07:07 08/24/25 07:07
Intake & Output
08/22/25 08/23/25 08/24/25 08/25/25
07:59 07:59 07:59 07:59
Intake Total 830 / 830 480 / 480
Balance 830 / 830 480 / 480
Physical Exam
Physical Exam
GEN: No distress, awake, alert, oriented x3. Sitting in chair
HEENT: supple, anicteric, mmm, EOMI
LUNGS: CTA bilaterally, no wheezes/rales
CV: Reg, S1/S2, no murmur
ABD: soft, BS+, NT/ND
EXT: No cyanosis, clubbing. Trace edema of bilateral lower extremity
NEURO: Gross non-focal
SKIN: Warm, pink, dry. No rash
[2025-08-24] MEDS: ZESTRIL 40 MG PO (19:58)
--- NOTE | 2025-08-24 20:41 | PTCARENOTE ---
Rec'd pt at change of shift. Pt AAO*3, VSS, and SR with BBB on TELE monitor. PT denies any pain or discomfort at this time but reports occasional pain with activity from previous R groin site. Site soft to touch with underlying firmness that
measures less than 2x3 cm. Pt and previous RN confirm no growth in size of site and underlying firmness. Tylenol offered and pt declined. Pt now resting with call siddiqui in reach. See MAR and flowchart for full pt care and assessment.
[2025-08-25 04:47] VITALS: BP 145/74
[2025-08-25 07:06] VITALS: BP 148/70
[2025-08-25] MEDS: TIKOSYN 500 MCG PO (08:12)
[2025-08-25] MEDS: VITAMIN D3 (cholecalciferol) 50 MCG PO (08:13)
[2025-08-25] MEDS: ELIQUIS 5 MG PO (08:13)
[2025-08-25] MEDS: NORVASC 10 MG PO (08:13)
[2025-08-25] MEDS: MAGNESIUM OXIDE 400 MG PO (08:14)
--- NOTE | 2025-08-25 09:15 | W.PN.CARDCBS ---
Addendum entered and electronically signed by Gertrude Pan PA-C 08/26/25 16:35:
[id number]
Addendum entered and electronically signed by Garrison Agosto MD 08/25/25 17:53:
I saw and examined the patient.
The Manager Of Broadcast Content's note was reviewed and I agree with the note.
Comment:
GEN: No distress, awake, Ox3
HEENT: supple, anicteric, mmm
LUNGS: CTA, no wheezes/rales
CV: Reg, S1/S2, /6 syst LSB, no gallop
ABD: soft, BS+, NT/ND
EXT: No edema
NEURO: Gross non-focal
SKIN: No rash
Plan:
Remains in sinus rhythm. Continue Tikosyn 500 mcg twice daily. QTc stable. Continue Eliquis.
Will add a low-dose Lasix as she has some edema and is unable to take HCTZ.
Continue amlodipine and lisinopril.
Original Note:
Today's Communication / Plan
-
tolerating tikosyn 500mcg Q12H
QTc stable
continue eliquis
consider addition of lasix vs transitioning norvasc to alternative antiHTN agent due to side effect of LE swelling
for DC today
OP cardiac follow up arranged
Impression / Plan
-
Please refer to Office visit consultation from 08/01/2025 as admission H & P
PCP: RADHA Rosenthal
CDY: Miguel Joseph MD
Jig Filler: Dr. Aguilar
IMPRESSION:
Elective admission 08/22/2025 for initiation of Tikosyn
Recurrent symptomatic AFib refractory with failed medical management on sotalol and multiple ablations as noted above
s/p PFA, 08/15/25
Prior PVI x3 (09/2015, 01/2022, PFA-04/2024)
HTN
HLD
BABATUNDE/CPAP
PVCs
Chronic LBBB
GERD/Gastric ulcer
mild
chronic LE edema
Echo 12/09/2023: EF 54%. Normal regional wall motion. Mild MR.
PLAN:
-75 y/o, recurrent symptomatic AFib, 3 prior ablations since 2014 most recently 08/15/2025 with PFA multiple cardioversions during procedure. Sotalol discontinued at time of procedure 08/15/25. Now here for elective admission for initiation of
Tikosyn 08/22/2025.
-OP HCTZ stopped 08/22 and should not be resumed as tikosyn started 08/23 post 24 hour washout.
-tolerating tikosyn 500mcg Q12H. follow QTc, stable by EKG 10/8 PM. she has chronic LBBB in addition
-continue eliquis
-in SR on review of tele overnight
-continue OP lisinopril, norvasc. She reports she was started on HCTZ as she had lower extremity swelling in the setting of being on Norvasc. no issues with breathing overnight. does report some LE swelling since stopping HCTZ. low threshold to add
Lasix, or could consider transitioning Norvasc to different antihypertensive that would not cause side effect of lower extremity swelling
-If recurrent AFib after 4th ablation and AAD, could consider AVJ ablation with PPM implant.
-plan for DC today
-OP cardiac follow up arranged
-d/w nursing
Admission HPI 08/22/2025:
Patient is a 75-year-old female with recurrent symptomatic atrial fibrillation, poorly controlled with attempts of medical therapy including three prior ablations as well as sotalol therapy. She has a [id number] score of 4 and has been maintained
on Eliquis. She previously was on low-dose sotalol and intolerant of increased doses due to bradycardia. She refuses amiodarone therapy. On 08/15/2025 she underwent redo pulse field ablation. Procedure was complex with multiple cardioversions during
the procedure. She did spontaneously convert to sinus rhythm prior to discharge. Sotalol was discontinued with washout and patient is now being admitted for [facility] admission. Patient was on hydrochlorothiazide prior to admission. This has been
discontinued
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
Subjective
Date of Service: August 25, 2025
feeling well. no CP, SOB overnight
Objective
Labs:
08/22/25 09:02
08/24/25 04:17
Labs
Hgb 12.9 g/dL (12.0-16.0) 08/22/25 09:02
Hct 38.9 % (37.0-47.0) 08/22/25 09:02
Plt Count 166 10^3/uL (130-400) D 08/22/25 09:02
Sodium 141 mmol/L (135-145) 08/24/25 04:17
Potassium 4.0 mmol/L (3.5-5.1) 08/24/25 04:17
BUN 20 mg/dl (7-17) H 08/24/25 04:17
Creatinine 0.7 mg/dL (0.6-1.0) 08/24/25 04:17
Glucose 96 mg/dl (70-99) 08/24/25 04:17
Vital Signs and I&O:
Vital Signs
Temp Pulse Resp BP Pulse Ox
97.7 F 47 20 148/70 97
08/25/25 07:04 08/25/25 08:00 08/25/25 07:04 08/25/25 07:06 08/25/25 07:06
Vital Signs
Temp Pulse Resp BP Pulse Ox
97.7 F 47 20 148/70 97
08/25/25 07:04 08/25/25 08:00 08/25/25 07:04 08/25/25 07:06 08/25/25 07:06
Intake & Output
10/07/08/24/25 08/25/25 08/26/25
07:59 07:59 07:59 07:59
Intake Total 830 / 830 480 / 480 [id number] / [id number]
Balance 830 / 830 480 / 480 24049 / 28297
Physical Exam
Physical Exam
GEN: No distress, awake, alert, oriented x3. Sitting in chair
HEENT: supple, anicteric, mmm, EOMI
LUNGS: CTA bilaterally, no wheezes/rales
CV: Reg, S1/S2, no murmur
ABD: soft, BS+, NT/ND
EXT: No cyanosis, clubbing. Trace edema of bilateral lower extremity
NEURO: Gross non-focal
SKIN: Warm, pink, dry. No rash
--- NOTE | 2025-08-25 09:41 | PTCARENOTE ---
Pt OOB ambulating in room, torito well, offers no complaints. 5th dose of Tikosyn given, as ordered, will obtain EKG around 1015.
--- NOTE | 2025-08-25 11:20 | W.DS.TRANS ---
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
-
Discharge Instructions:
Discharge Diagnosis/Procedures atrial fibrillation, tikosyn load
Diet Low Sodium
Activity As tolerated
Driving Restrictions As prior to admission
Bathing Restrictions None
Blood Work BMP in 1 week
Instructions:
Stand-Alone Forms:
Changes to Home Medications: Yes
Discharge Medications:
DC Medications w/original date entered in [employer]
lisinopril 40 mg tablet 40 mg PO HS Blood pressure 10/03/15
apixaban 5 mg tablet (Eliquis) 5 mg PO BID Blood clot prevention/tx 07/08/20
cholecalciferol (vitamin D3) 50 mcg (2,000 unit) tablet (Vitamin D3) 50 mcg PO DAILY@1200 Supplement 04/01/24
Probiotic 1 cap PO DAILY 08/03/25
amlodipine 10 mg tablet 10 mg PO DAILY 08/03/25
magnesium 1 tab PO DAILY 08/03/25
omeprazole 20 mg capsule,delayed release 20 mg PO DAILYPRN PRN gerd 08/03/25
polyethylene glycol 400 0.25 % eye drops (Blink Tears) 1 drp ophthalmic (eye) PRN PRN dry eyes 08/03/25
dofetilide 500 mcg capsule 500 mcg PO Q12H #60 caps 08/25/25
furosemide 20 mg tablet 20 mg PO DAILY #30 tabs 08/25/25
Home Medication Changes
HCTZ stopped
lasix and tikosyn are new
Pending Results: No
[2025-08-25 12:19] VITALS: BP 146/55
[2025-08-25] MEDS: LASIX 20 MG PO (12:22)
== END 2025-08-25 13:35 | disposition home or self-care (01) | DRG 310 ==
LOC: IVU 07:59
PROVIDERS: Physician Assistant Medical; ADMITTING PHYSICIAN Internal Medicine Cardiovascular Disease
DX: I48.91 Unspecified atrial fibrillation (principal); E78.5 Hyperlipidemia, unspecified; I44.7 Left bundle-branch block, unspecified; K21.9 Gastro-esophageal reflux disease without esophagitis; G47.33 Obstructive sleep apnea (adult) (pediatric); I10 Essential (primary) hypertension
CPT/HCPCS: 80048; 80053; 83735; 85027; 93005

== ENCOUNTER → 2025-10-10 10:43 | Outpatient (REF) | payer OTHER, SELFPAY | LOC: RAD 10:43 | PROVIDERS: ATTENDING PHYSICIAN Internal Medicine Endocrinology, Diabetes & Metabolism; FAMILY PHYSICIAN Physician Assistant Medical | DX: E04.1 Nontoxic single thyroid nodule (principal) | CPT/HCPCS: 76536 ==